=== PATIENT | female | born 1995 | race Caucasian/White ===

== ENCOUNTER → 2018-04-08 18:52 | Outpatient (CLI) | payer MEDICAID, SELFPAY ==
[2018-04-08 23:27] LABS: Chlamydia Trachomatis by PCR Negative (Negative); Neisserai gonorrhoeae by PCR Negative (Negative); Probe Check PASS; Sample Adequacy Control PASS; Specimen Processing Control PASS
== END ==
PROVIDERS: Visit Provider Obstetrics & Gynecology
DX: Z32.01 Encounter for pregnancy test, result positive (principal); Z11.3 Encounter for screening for infections with a predominantly sexual mode of transmission
CPT/HCPCS: 87491; 87591

== ENCOUNTER → 2018-04-22 14:58 | Outpatient (CLI) | payer MEDICAID, SELFPAY ==
[2018-04-22 15:46] LABS: Absolute Lymphocyte Count 1.86 X10^3/ul (0.83-4.51); Basophil# 0.01 X10^3/uL; Basophil% 0.1 % (0-1); Eosinophils% 1.1 % (0-5); Hematocrit 37.9 % (37-47); Hemoglobin 12.9 g/dl (12.0-15.0); Lymphocyte # 1.86 X10^3/ul (4.0); Lymphocyte % 19.7 % (19-41); Mean Corpuscular Hgb 30.2 pg (27.0-32.0); Mean Corpuscular Volume 88.8 fL (81-99); Mean Platelet Vol. 10.3 fl (6.2-12.0); Monocyte# 0.45 X10^3/uL; Monocyte% 4.8 % (0-10); Neutrophil # 7.03 X10^3/uL (2.7-7.7); Neutrophil % 74.2 % (47-70); Platelet Count 275 K/mm3 (150-450); RBC Distribution Width CV 12.8 % (11.6-14.6); RBC Distribution Width SD 40.9 fl (35.1-43.9); Red Blood Count 4.27 M/mm3 (4.2-5.4); White Blood Count 9.5 K/mm3 (4.4-11.0)
[2018-04-22 15:48] LABS: POSITIVE COUNT NO; POSITIVE DIFFERENTIAL NO; POSITIVE MORPHOLOGY NO
[2018-04-22 15:58] LABS: COTININE Drug Screen Positive (<200 ng/mL)
[2018-04-22 16:05] LABS: Amphetamine Urine VISTA NEGATIVE (<1000 ng/mL); Barbiturate Urine VISTA NEGATIVE (< 200 ng/mL); Benzodiazepine Urine VISTA NEGATIVE (< 200 ng/mL); Cocaine Urine VISTA NEGATIVE (< 300 ng/mL); Ecstacy Urine VISTA NEGATIVE (< 500 ng/mL); Methadone Urine VISTA NEGATIVE (< 300 ng/mL); PCP Urine VISTA NEGATIVE (< 25 ng/mL); THC Urine VISTA NEGATIVE (< 50 ng/mL); Vista UDS pH Range 6
[2018-04-22 16:07] LABS: Color, Urine Yellow (Yellow); Glucose, Dipstick Normal (Normal); Ketone-Dipstick 15 mg/dl (Negative); Leukocyte Esterase-Dipstick 25 /ul (Negative); Nitrite-Dipstick Negative (Negative); Occult Blood-Urine 10 /ul (Negative); Protein-Dipstick 30 mg/dl (Negative); Specific Gravity, Urine 1.015 (1.002-1.030); Urine Clarity Sl. Cloudy (Clear); Urine Urobilinogen 4 mg/dl (Normal); Urine pH 6.5 (5.0 - 8.0)
[2018-04-22 16:14] LABS: Urine Bilirubin Dipstick 1 mg/dL (Negative)
[2018-04-22 16:25] LABS: Thyroid Stim Hormone (TSH) 0.53 uIU/mL (0.358-3.74)
[2018-04-22 17:13] LABS: HIV - WCH Non-Reactive (Nonreactive); Rubella IgG 15.1 IU/mL; Vitamin D,25 Hydroxy 13.6 ng/mL (29.95-100.01)
[2018-04-24 09:01] LABS: HEPATITIS B SURFACE AG Negative (Negative); Hep C Antibodies <0.1 s/co ratio (0.0-0.9)
[2018-04-25 01:18] LABS: Prenatal RPR NONREACTIVE (NONREACTIVE)
== END ==
PROVIDERS: Visit Provider Obstetrics & Gynecology
DX: Z34.81 Encounter for supervision of other normal pregnancy, first trimester (principal)
CPT/HCPCS: 36415; 80307; 81002; 82306; 84443; 85025; 86703; 86762; 86803; 87340

== ENCOUNTER 2018-07-20 19:20 | Outpatient (CLI) | payer MEDICAID, SELFPAY ==
[2018-07-20 20:00] VITALS: BMI 33.6
[2018-07-20 21:13] LABS: Fetal Fibronectin POSITIVE
--- NOTE | 2018-07-21 00:11 | OB.TRI.NOTE ---
History of Present Illness Date of Service: 07/20/18 Was patient seen by the physician?: No Reason For Visit: R/O LABOR Date of Service: 07/20/18 Final ANAID: 10/29/18 Final ANAID Source: US <20 weeks Gestational age: 25 Weeks and 5 Days History of Present Illness: c/o losing mucous plug today denies contractions, leaking fluid or bleeding. Allergies hydroxyzine HCl [From Vistaril] Allergy (Verified 07/20/18 19:53) Rash hydroxyzine pamoate [From Vistaril] Allergy (Verified 07/20/18 19:53) Rash Laboratory Studies: Laboratory Tests 07/20/18 Range/Units 20:20 Fibronectin POSITIVE H Physical Exam General: Alert, Oriented x3, Cooperative, No apparent distress Cardiovascular: Regular rate, Regular Rhythm Lungs: Clear to auscultation, Normal air movement Abdomen: Soft, Non Tender, Non-Distended, Gravid, Appropriate for Gestational Age Neurological: Neuro grossly intact DISTRIBUTION DRIVER: Normal external genitalia NST - FHR Rate Baby A Baseline: 130s NST Reactive:: Appropriate for gestational age FHR Category:: Category I Uterine Activity:: none Impression/Plan No signs of PTL. NO signs of PPROM FFN positive. Appropriate heart beat. Will have followup in the office tomorrow for cervical length and betamethasone series.
--- NOTE | 2018-07-21 00:15 | OB.TRI.HP_ITS ---
History of Present Illness Date of Service: 07/20/18 Was patient seen by the physician?: No Reason For Visit: R/O LABOR Date of Service: 07/20/18 Final ANAID: 10/29/18 Final ANAID Source: US <20 weeks Gestational age: 25 Weeks and 5 Days History of Present Illness: c/o losing mucous plug today denies contractions, leaking fluid or bleeding. Allergies hydroxyzine HCl [From Vistaril] Allergy (Verified 07/20/18 19:53) Rash hydroxyzine pamoate [From Vistaril] Allergy (Verified 07/20/18 19:53) Rash Laboratory Studies: Laboratory Tests 07/20/18 Range/Units 20:20 Fibronectin POSITIVE H Physical Exam General: Alert, Oriented x3, Cooperative, No apparent distress Cardiovascular: Regular rate, Regular Rhythm Lungs: Clear to auscultation, Normal air movement Abdomen: Soft, Non Tender, Non-Distended, Gravid, Appropriate for Gestational Age Neurological: Neuro grossly intact CABIN OUTFITTER: Normal external genitalia NST - FHR Rate Baby A Baseline: 130s NST Reactive:: Appropriate for gestational age FHR Category:: Category I Uterine Activity:: none Impression/Plan No signs of PTL. NO signs of PPROM FFN positive. Appropriate heart beat. Will have followup in the office tomorrow for cervical length and betamethasone series.
--- OUTSIDE RECORDS SUMMARY | 2018-10-22 13:54 | XMS RPT_ITS ---
:1995 Author Organization OHIP Support Name Relationship Address Phone ALISA MATUTE Unavailable [address] + [place] [address] NORMA, NATE Unavailable [address] [place] [address] NOT GIVEN Unavailable SERVICES Unavailable JUJU, ALISA/MONIKA Unavailable [address] + [place] [address] JASBIR, NATE Unavailable [address] + [place] [address] [facility] Unavailable [address] + [place] [address] CHEW, ALISA/MONIKA Unavailable [address] + [place] [address] JASBIR, NATE Unavailable [address] + [place] [address] [facility] Unavailable [address] +. [place] [address] CHEW, JEWELS Unavailable [address] + [place] [address] JASBIR, NATE Unavailable [address] + [place] [address] CHEW, ALISA/MONIKA Unavailable [address] + [place] [address] JASBIR, NATE Unavailable [address] + [place] [address] [facility] Unavailable [address] +. [place] [address] CHEW, JEWELS Unavailable [address] + [place] [address] JASBIR, NATE Unavailable [address] + [place] [address] CHEW, ALISA/MONIKA Unavailable [address] + [place] [address] JASBIR, NATE Unavailable [address] + [place] [address] [facility] Unavailable [address] +. [place] [address] CHEW, ALISA Unavailable [address] + [place] [address] NORMA, NATE Unavailable [address] [place] [address] NOT GIVEN Unavailable SERVICES Unavailable CHEW, ALISA/MONIKA Unavailable [address] + [place] [address] JASBIR, NATE Unavailable [address] + [place] [address] [facility] Unavailable [address] +. [place] [address] CHEW, ALISA Unavailable [address] + [place] [address] NORMA, NATE Unavailable [address] [place] [address] NOT GIVEN Unavailable SERVICES Unavailable CHEW, ALISA Unavailable [address] + [place] [address] NOT GIVEN Unavailable SERVICES Unavailable CHEW, ALISA Unavailable [address] + [place] [address] NOT GIVEN Unavailable Unavailable Unavailable Care Team Providers Name Role Phone LORRAINE NIEVES CNP Admitting Unavailable LORRAINE NIEVES CNP Attending Unavailable LORRAINE NIEVES CNP Primary Care Unavailable KADE DASILVA Consulting Unavailable PROVIDER, UNKNOWN Consulting Unavailable LORRAINE NIEVES CNP Admitting Unavailable LORRAINE NIEVES CNP Attending Unavailable LORRAINE NIEVES CNP Primary Care Unavailable LORRAINE NIEVES CNP Consulting Unavailable PROVIDER, UNKNOWN Consulting Unavailable PROVIDER, UNKNOWN Consulting Unavailable LORRAINE NIEVES CNP Admitting Unavailable LORRAINE NIEVES CNP Attending Unavailable LORRAINE NIEVES CNP Primary Care Unavailable LORRAINE NIEVES CNP Consulting Unavailable PROVIDER, UNKNOWN Consulting Unavailable PROVIDER, UNKNOWN Consulting Unavailable SMITHA HAYS Admitting Unavailable SMITHA HAYS Attending Unavailable LORRAINE NIEVES CNP Referring Unavailable SMITHA HAYS Primary Care Unavailable LORRAINE NIEVES CNP Consulting Unavailable PROVIDER, UNKNOWN Consulting Unavailable PROVIDER, UNKNOWN Consulting Unavailable ML CONTRERAS DO Admitting Unavailable ML CONTRERAS DO Attending Unavailable LORRAINE NIEVES CNP Referring Unavailable ML CONTRERAS DO Primary Care Unavailable LORRAINE NIEVES CNP Consulting Unavailable PROVIDER, UNKNOWN Consulting Unavailable PROVIDER, UNKNOWN Consulting Unavailable ISAEL PICKETT Attending Unavailable KOROMA OJ, SUMMER T Referring Unavailable NO PRIMARY CARE, Primary Care Unavailable DARRIUS LESTER Attending Unavailable KOROMA OJ, SUMMER T Referring Unavailable NO PRIMARY CARE, Primary Care Unavailable Ml Howard Attending Unavailable Primay Care Physicia, No Primary Care Unavailable Koroma-Oj, Summer Attending Unavailable Primay Care Physicia, No Primary Care Unavailable Koroma-Oj, Summer Attending Unavailable Primay Care Physicia, No Primary Care Unavailable Koroma-Oj, Summer Attending Unavailable Primay Care Physicia, No Primary Care Unavailable Koroma-Oj, Summer Attending Unavailable Koroma-Oj, Summer Referring Unavailable Lorraine Nieves Primary Care Unavailable PROBLEMS PROBLEMS DATE TYPE CONDITION / CODE ATTENDING STATUS SOURCE 08/12/2018 Unknown Z34.83 - Encounter Vinod Active [place] for supervision of [facility] normal Hospital , third Repository trimester / Z34.83(ICD-10) 08/12/2018 Unknown E55.9 - Vitamin D Vinod Active [place] deficiency, [facility] unspecified / Hospital E55.9(ICD-10) Repository 04/22/2018 Unknown Z34.81 - Encounter Vinod Active [place] for supervision of [facility] other normal Hospital , first Repository trimester / Z34.81(ICD-10) 04/08/2018 Unknown Z11.3 - Encounter Vinod Active [place] for screening for [facility] infections with a Hospital predominantly Repository sexual mode of transmission / Z11.3(ICD-10) 04/08/2018 Unknown Z32.01 - Encounter Vinod Active [place] for test, [facility] result positive / Hospital Z32.01(ICD-10) Repository 03/04/2018 Principle Less than 8 weeks LORRAINE NIEVES Active [place] Patricia Diagnosis gestation of [facility] / Hospital Z3A01(ICD-10) Repository 01/16/2018 Admitting Irregular LORRAINE NIEVES Active [place] Diagnosis menstruation, [facility] unspecified / Hospital N926(ICD-10) Repository 01/16/2018 Principle Irregular LORRAINE NIEVES Active [place] Diagnosis menstruation, [facility] unspecified / Hospital N926(ICD-10) Repository 11/21/2017 Principle Unspecified mood LORRAINE NIEVES Active [place] Patricia Diagnosis [affective] [facility] disorder / Hospital F39(ICD-10) Repository PROCEDURES PROCEDURES No Procedure Records FoundRESULTS RESULTS CBC (NO DIFF) Collected: 08/22/2018 Status: F Source: [facility] 10:00 PM [facility] REPOSITORY TYPE CODE TESTS RESULT OUT OF RANGE REFERENCE UNITS LAB CBC (NO DIFF)(LOINC ) CBC (NO DIFF) Result Comment: CBC(WITHOUT DIFFERENTIAL) LAB WBC(LOINC) 4.5 - 10.8 x 10EE3/UL WBC 8.2 LAB RBC(LOINC) 4.10 - x 10EE6/UL 5.30 RBC Low 3.87 LAB HEMOGLOBIN(LOINC) 12.0 - g/dl 16.0 Low HEMOGLOBIN 11.9 LAB HEMATOCRIT(LOINC) 34.0 - % 46.0 HEMATOCRIT 34.5 LAB MCV(LOINC) 80 - 99 fl MCV 89 LAB MCH(LOINC) 27 - 33 pg MCH 31 LAB MCHC(LOINC) 32 - 36 X10 3 MCHC 35 LAB RDW/CV(LOINC) 12.0 - % 15.6 RDW/CV 13.4 LAB PLATELET(LOINC) 150 - 450 x10EE3/UL PLATELET 234 LAB MPV(LOINC) 6.6 - 10.5 fl MPV 8.7 Result Comment: {CB] Performed By: #### [id number] #### [facility],[address] [place] [address] CMP WITH EGFR Collected: 08/22/2018 Status: F Source: [facility] 10:00 PM [facility] REPOSITORY TYPE CODE TESTS RESULT OUT OF RANGE REFERENCE UNITS LAB CMP with eGFR(LOINC) CMP with eGFR Result Comment: COMPREHENSIVE METABOLIC PANEL LAB SODIUM(LOINC) 136 - 145 mmol/l SODIUM Low 134 LAB POTASSIUM(LOINC) 3.5 - 5.1 mmol/L POTASSIUM 3.6 LAB CHLORIDE(LOINC) 98 - 107 mmol/L CHLORIDE 102 LAB CO2(LOINC) 21.0 - mmol/L 31.0 CO2 21.7 LAB GLUCOSE(LOINC) 74 - 106 mg/dl GLUCOSE 93 LAB BUN(LOINC) 6 - 20 mg/dl BUN 12 LAB CREATININE(LOINC) 0.6 - 1.2 mg/dl CREATININE 0.6 LAB AST/SGOT(LOINC) 13 - 39 U/L AST/SGOT 22 LAB ALK PHOS(LOINC) 38 - 126 U/L ALK PHOS 98 LAB CALCIUM(LOINC) 8.6 - mg/dl 10.2 CALCIUM 9.1 LAB TOTAL 6.4 - 8.3 g/dl PROTEIN(LOINC) TOTAL PROTEIN 6.7 LAB ALBUMIN(LOINC) 3.4 - 4.8 g/dL ALBUMIN 3.6 LAB GLOBULIN(LOINC) 1.5 - 3.8 G/DL GLOBULIN 3.1 LAB A/G RATIO(LOINC) 0.9 - 1.6 A/G RATIO 1.2 LAB TOTAL BILI(LOINC) 0.0 - 1.5 mg/dl TOTAL BILI 0.5 LAB B/C RATIO(LOINC) 0 - 30 ratio B/C RATIO 20 LAB ALT/SGPT(LOINC) 8 - 35 U/L ALT/SGPT High 38 LAB ANION GAP(LOINC) 10 - 20 mmol/L ANION GAP 14 LAB AGE(LOINC) years AGE 23 LAB eGFR(LOINC) 60 - 999 ML/MINUTE eGFR >60 LAB eGFR(AA)(LOINC) 60 - 999 ML/MINUTE eGFR(AA) >60 Result Comment: ACCORDING TO THE NATIONAL KIDNEY DISEASE EDUCATION PROGRAM(NKDE), A NORMAL eGFR IS A VALUE GREATER THAN OR EQUAL TO 60 ML/MIN/1.73 SQ METERS. CHRONIC KIDNEY DISEASE: <60mL/MIN/1.73 SQ METERS KIDNEY FAILURE: <15mL/MIN/1.73 SQ METERS THIS TEST SHOULD ONLY BE USED FOR PATIENTS 18 YEARS OF AGE AND OLDER. Performed By: #### [id number] #### [place] [address] CHEST 2 VIEWS Observed: 08/22/2018 Status: F Source: [facility] 9:47 PM [place] [address] Patient: PEACE GREEN Phone#: : [phone] Age: 23 Gender: F Pt. Type: ER Account: [id number] Location: [id number] Ordering: ML CONTRERAS Exam Date: 08/22/2018/21:27 Family Phys: LORRAINE NIEVES Charge Code: [id number] Physician: [place] Order #: [id number] DLP Dose#: PROCEDURE: X-RAY CHEST 2 VIEWS COMPARISON: None. INDICATIONS: Cough. FINDINGS: LUNGS: Subtle right lung base density likely represents atelectasis. VASCULATURE: Normal. Unremarkable pulmonary vasculature. CARDIAC: Normal. No cardiac silhouette abnormality or cardiomegaly. MEDIASTINUM: Normal. No visible mass or adenopathy. PLEURA: Normal. No effusion or pleural thickening. BONES: Normal. No fracture or visible bony lesion. OTHER: Negative. CONCLUSION: 1. Probable atelectasis in the right lung base. Dictated by: Martha Huerta MD on 08/23/2018 at 9:27 Approved by: Martha Huerta MD on 08/23/2018 at 9:27 EMERGENCY REPORT Observed: 08/22/2018 Status: F Source: [facility] 8:56 PM [facility] EMERGENCY ROOM REPORT NAME ACCOUNT SEX AGE ADMIT DISCHARGE PT MED. RECORD# NUMBER DATE DATE TYPE NORMA [id number] F 23 08/22/18 3 PEACE Becerra [id number] ROOM: ER DATE OF : 1995 DICTATING PHYSICIAN: Ml Contreras TIME SEEN: 9 p.m. CHIEF COMPLAINT/HISTORY OF PRESENT ILLNESS: This is a 23-year-old white female 30 weeks complaining of a cough for the past 4 days. She does have a history of asthma and she has been wheezing. She did vomit 3 times today. She does have a history of vomiting while she is and her [employer]IST[employer] DISTRICT ATTORNEY doctor, Dr. Ga Christianson has given her some Zofran which is helping, but she still has been vomiting off and on throughout the day. Mom is concerned because she can get dehydrated easily from these episodes in the past. She has required IV fluids before. The patient has also had a history of pneumonia in the past. She does complain of some chest tightness which is consistent with her asthma. She could not find her inhaler initially, but she did eventually find it and has been using it which helps some but not a lot. PAST MEDICAL HISTORY: Patient has a past medical history of asthma, depression and anxiety. She is 30 weeks . She does have a history of pneumonia in the past. PAST SURGICAL HISTORY: Tonsillectomy and adenoidectomy. MEDICATIONS: Current medications include albuterol inhaler and Zofran. ALLERGIES: She is allergic to Vistaril. SOCIAL HISTORY: She is smoker, 1/2 pack per day. She denies any use of alcohol or illicit drugs. She lives at home with her family. REVIEW OF SYSTEMS: Denies any chest pain. Does admit to shortness of breath and cough. Denies any sputum. Does admit to wheezing and does complain of some chest tightness. Denies any abdominal pain. Does admit to nausea and vomiting. Denies any diarrhea, constipation, melena, hematochezia, headache, numbness, unsteady gait, weakness, neck or back pain, joint pain, skin rash or swelling, hives, hay fever or swollen glands. Further review of systems is negative. PHYSICAL EXAMINATION: Vital Signs: Blood pressure 102/93, pulse 129, respirations 20, temperature 97.7, pulse oximetry 96%, weight 204 pounds. Patient is alert and Page 1 of 2 [facility] GREEN Emergency Room Report oriented x 3. She presently appears in no acute distress. She is pleasant and cooperative. HEENT: Head appears atraumatic. Pupils are equal and reactive to light. Red reflex is intact bilaterally. Extraocular muscles are intact. No conjunctival injection. No scleral icterus or lid edema. Nose exhibits no rhinorrhea or epistaxis. Mouth: Mucous membranes are mildly dry. No pharyngeal erythema. Uvula is midline and elevates. Neck is supple with trachea midline. No JVD or lymphadenopathy. No posterior cervical tenderness. No nuchal rigidity. Lungs demonstrate bilateral expiratory wheezing in both the anterior and posterior lung gonzalez. No accessory muscle use. I do note crackles in the right posterior base as well. CVS: Heart rate and rhythm regular without murmur, mildly tachycardiac. Abdomen is soft, gravid, and nontender with normoactive bowel sounds x4 quadrants. No guarding or rigidity. No rebound. No palpable abdominal masses but, as noted, the abdomen is gravid. Back exhibits no midline or paraspinal region tenderness. No increased paraspinal muscle rigidity. Negative Aidan's sign. Extremities: No edema or cyanosis. Peripheral pulses are intact. No motor or sensory deficits noted. Hand certified health education specialist is strong and symmetric. Skin is warm and dry. No diaphoresis or rash. EMERGENCY DEPARTMENT COURSE AND TREATMENT: Presently, at this point, we will get a chest x-ray and we will give her an albuterol aerosol treatment. I am going to give her some IV fluids here from the vomiting and she does look a little bit dry, and we will get a CBC and a chemistry, and then reevaluate. DIAGNOSIS: Dictated By: Ml Contreras DO 08/22/18 21:41 JOB #: [id number] Transcribed By: maryjane 08/22/18 22:46 Electronically signed by: E-Sign: Dr. Ml Contreras D.O. 08/25/18 20:58 Page 2 of 2 [place] Emergency Room Report EMERGENCY REPORT Observed: 08/22/2018 Status: F Source: [facility] 8:56 PM [facility] EMERGENCY ROOM REPORT NAME ACCOUNT SEX AGE ADMIT DISCHARGE PT MED. RECORD# NUMBER DATE DATE TYPE NORMA [id number] F 23 08/22/18 08/23/18 3 PEACE Becerra [id number] ROOM: ER DATE OF : 1995 DICTATING PHYSICIAN: Ml Contreras ADDENDUM DIAGNOSTIC DATA: Chest x-ray showed a questionable mild right lower lobe infiltrate. Some of it may be breast shadow, but that is where I heard the crackles so clinically she presents as pneumonia. Her white count was 8.2, hemoglobin 11.9, hematocrit 34.5, and platelet count 234,000. Sodium was 134, potassium 3.6, chloride 102, and CO2 of 21.7. Her BUN was normal at 12, and creatinine was normal at 0.6. GFR was greater than 60. Glucose was 93. AST was 22, and ALT was mildly elevated at 38. Alkaline phosphatase was normal at 98. Total bilirubin was normal at 0.5. Anion gap was normal at 14. EMERGENCY DEPARTMENT COURSE AND TREATMENT: We did give her some IV fluids here for her vomiting, and she does feel better. The patient was placed on Zithromax 500 mg one p.o. daily, dispense #7 with no refill. She was given a dose here, and she has kept that down since we did give her some IV Zofran for the nausea. I gave her a prescription for an albuterol inhaler with AeroChamber 2 puffs every 6 hours as needed for shortness of breath/wheeze, dispense #1 with one refill. She is to rest, encourage fluids, take the Zofran for the nausea that her OB has prescribed, and make sure she does touch base with her ASSISTANT DISTRICT ATTORNEY on Saturday and update her on how she is feeling. If her symptoms become worse, return here to the Emergency Department. The patient was discharged in a clinically stable condition. Nurse's notes reviewed. Encourage fluids as tolerated. DIAGNOSES: 1. Acute exacerbation of asthma. 2. Mild right lower lobe pneumonia. 3. Vomiting with mild dehydration. 4. at 30 weeks. Dictated By: Ml Contreras DO 08/22/18 22:41 JOB #: [id number] Transcribed By: eran 08/23/18 06:36 Electronically signed by: E-Sign: Dr. Ml Contreras D.O. 08/25/18 20:58 Page 1 of 1 [facility] Emergency Room Report LIVER PROFILE Collected: 08/19/2018 Status: F Source: [place] 10:27 AM [facility] REPOSITORY Order Comment: Is Patient Fasting? Y TYPE CODE TESTS RESULT OUT OF RANGE REFERENCE UNITS LAB L501.1500 6.4-8.2 g/dL Normal T PROT 7.0 LAB L501.1800 3.2-5.0 g/dL Low ALB 2.7 LAB L501.1950 2.2-4.2 g/dL High GLOB 4.3 LAB L501.4100 15-37 U/L Normal AST 29 LAB L501.4305 45-117 U/L High ALK P 123 LAB L501.4405 13-56 U/L High ALT 60 LAB L501.4600 0.20-1.00 mg/dL Normal T BILI 0.40 LAB L501.4700 0.00-0.30 mg/dL Normal D BILI 0.13 Performed By: #### L500.3400, L500.4710 #### [facility] [address] [place], [address] GESTATIONAL GTT 3HR Collected: 08/19/2018 Status: F Source: [place] 100G 10:27 AM [facility] REPOSITORY Order Comment: Is Patient Fasting? Y TYPE CODE TESTS RESULT OUT OF RANGE REFERENCE UNITS LAB L501.0650 <105 mg/dL Normal GLU 99 GTT-FASTING Result Comment: GLUCOSE TOLERANCE TEST FOR Reference Interval GESTATIONAL DIABETES Fasting <105 mg/dL 1 hour <190 mg/dl 2 hour <165 mg/dl 3 hour <145 mg/dl LAB L501.0660 <190 mg/dL Normal GLU GTT- 1HR 177 LAB L501.0670 <165 mg/dL Normal GLU GTT- 2HR 102 LAB L501.0680 <145 L Normal GLU GTT- 3HR 111 Performed By: #### L500.3400, L500.4799 #### [facility] [address] [facility] [address] [place], [place], [address] CBC-COMPLETE BLOOD CNT Collected: 08/12/2018 Status: F Source: [place] NO DIFF 2:10 PM [facility] REPOSITORY TYPE CODE TESTS RESULT OUT OF RANGE REFERENCE UNITS LAB L100.1000 4.4-11.0 K/mm3 Normal WBC 10.0 LAB L100.1200 4.2-5.4 M/mm3 Low RBC 3.76 LAB L100.1300 12.0-15.0 g/dl Normal HGB 12.0 LAB L100.1400 37-47 % Low HCT 34.8 LAB L100.1500 81-99 fL Normal MCV 92.6 LAB L100.1600 27.0-32.0 pg Normal MCH 31.9 LAB L100.1700 32-36 g/gl Normal MCHC 34.5 LAB L100.1810 11.6-14.6 % Normal RDW CV 13.0 LAB L100.1820 35.1-43.9 fl Normal RDW SD 43.0 LAB L100.1900 150-450 K/mm3 Normal PLT 264 LAB L100.2000 6.2-12.0 fl Normal MPV 10.5 Performed By: #### L100.0500 #### [facility] [address] [facility] [address] [place], [place], [address] VITAMIN D,25 HYDROXY Collected: 08/12/2018 Status: F Source: [place] 2:10 PM [facility] REPOSITORY TYPE CODE TESTS RESULT OUT OF REFERENCE UNITS RANGE LAB L506.1000 29.95-100.01 ng/mL Low Vitamin D 12.5 25-OH Result Comment: Vitamin D 25(OH) Status Range Deficiency <20 ng/mL (50nmol/L) Insuffciency 20 - 30 ng/mL (50 - 75 nmol/L) Sufficiency 30 - 100 ng/mL (75 - 250 nmol/L) Toxicity >100 ng/mL (>250 nmol/L) Performed By: #### L506.1000 #### [facility] [address] [place], [address] COMPREHENSIVE METABOLIC Collected: 08/12/2018 Status: F Source: [place] [facility] 2:10 PM [facility] REPOSITORY TYPE CODE TESTS RESULT OUT OF RANGE REFERENCE UNITS LAB L501.0100 74-106 mg/dL High GLU 142 Result Comment: Fasting Glucose result greater than or equal to 126 mg/dL suggests DIABETES MELLITUS per A.D.A. criteria. Please note revised GLUCOSE reference range effective 2017. LAB L501.1000 7-18 mg/dL Normal BUN 9 LAB L501.1100 0.55-1.02 mg/dL Low CREAT,SERUM 0.52 Result Comment: The validity of the calculated GFR AND GFRAA in patients over 70 years has not been determined. Clinical correlation is essential. LAB L501.1110 >60 mL/min Normal EST GFR 153 Result Comment: Non- GFR Calc LAB L501.1115 >60 mL/min Normal EST GFR - AA 186 Result Comment: GFR Calc LAB L501.1300 10-20 RATIO Normal BUN/CRE 17.3 LAB L501.1500 6.4-8.2 g/dL T Normal PROT 6.4 LAB L501.1800 3.2-5.0 g/dL Low ALB 2.8 LAB L501.1950 2.2-4.2 g/dL Normal GLOB 3.6 LAB L501.2000 0.9-2.4 RATIO Low A/G 0.8 LAB L501.2200 8.5-10.1 mg/dL Low CA 8.4 LAB L501.4100 15-37 U/L Normal AST 30 LAB L501.4305 45-117 U/L Normal ALK P 112 LAB L501.4405 13-56 U/L High ALT 67 LAB L501.4600 0.20-1.00 mg/dL T Normal BILI 0.40 LAB L501.5300 136-145 mmol/L NA Normal 137 LAB L501.5600 3.5-5.1 mmol/L K Normal 3.7 LAB L501.5900 98-107 mmol/L CL Normal 107 LAB L501.6100 21.0-32.0 mmol/L Normal CO2 21.0 LAB L501.6200 5-15 Normal GAP 9 Performed By: #### L500.4050, L501.0250, L501.1400 #### [facility] [address] [place], [address] GLUCOSE CHALLENGE GEST Collected: 08/12/2018 Status: F Source: [place] 1H 50G 2:10 PM [facility] REPOSITORY TYPE CODE TESTS RESULT OUT OF RANGE REFERENCE UNITS LAB L501.0250 70-140 mg/dL High GLU GEST 142 50g 1H Performed By: #### L500.4050, L501.0250, L501.1400 #### [facility] [address] [place], [address] URIC ACID Collected: 08/12/2018 Status: F Source: [place] 2:10 PM [facility] REPOSITORY TYPE CODE TESTS RESULT OUT OF RANGE REFERENCE UNITS LAB L501.1400 2.6-6.0 mg/dL Normal URIC 4.6 Result Comment: The drugs N-Acetylcysteine and Metamizole may falsely depress this assay. Performed By: #### L500.4050, L501.0250, L501.1400 #### [facility] [address] [place], [place], [address] FIBRONECTIN Collected: 07/20/2018 Status: F Source: [place] 8:20 PM [facility] REPOSITORY TYPE CODE TESTS RESULT OUT OF REFERENCE UNITS RANGE LAB L205.0100 High fFN POSITIVE Result Comment: CALLED TO Magnus GILBERT 07/20/182110 BY BETTY Performed By: #### L205.0000 #### [facility] [address] [place], [address] PROGRESS NOTE Observed: 07/02/2018 Status: COMPLETED Source: [place] 12:45 PM [facility] REPOSITORY The total patient time of the visit was 15 minutes, of which greater than 50% of the time was spent counseling and coordinating care. URINE DRUG SCREEN Collected: 04/22/2018 Status: F Source: [place] ([place]IST[place]) 3:00 PM [facility] REPOSITORY Order Comment: List of Drugs Taken or Suspected? UNK TYPE CODE TESTS RESULT OUT OF RANGE REFERENCE UNITS LAB L505.0075 TO BE Normal CONFIRMED Result Comment: CONFIRMATORY TESTING FOR ALL POSITIVE URINE DRUG SCREEN RESULTS WILL ONLY BE SENT OUT UPON PHYSICIAN ORDER. VISTA Urine Drug Screen methods provide only preliminary analytical test results. A more specific alternate chemical method must be used in order to obtain a confirmed analytical result. Gas chromatography/mass spectrometery (GC/MS) is the preferred confirmatory method. Clinical consideration and professional judgement should be applied to any drug of abuse test result, particularly when preliminary positive results are used. URINE TCA TESTING MUST BE ORDERED SEPARATELY. USE TEST MNEMONIC: [facility] LAB L505.5005 VISTA UDS PH 6 Normal LAB L505.5015 <1000 ng/mL AMPHETAMINES Normal NEGATIVE LAB L505.5025 < 200 ng/mL BARBITIURATES Normal NEGATIVE LAB L505.5035 < 200 ng/mL BENZODIAZIPINE Normal NEGATIVE LAB L505.5045 < 300 ng/mL COCAINE Normal NEGATIVE LAB L505.5055 < 500 ng/mL ECSTACY Normal NEGATIVE LAB L505.5065 < 300 ng/mL METHADONE Normal NEGATIVE LAB L505.5075 < 300 ng/mL OPIATES Normal NEGATIVE LAB L505.5085 < 25 ng/mL PCP Normal NEGATIVE LAB L505.5095 < 50 ng/mL THC Normal NEGATIVE Performed By: #### L505.5000, L505.6240 #### [facility] [address] [place], [address] NICOTINE URINE DRUG Collected: 04/22/2018 Status: F Source: [place] SCREEN 3:00 PM [facility] REPOSITORY Order Comment: List of Drugs Taken or Suspected? UNK TYPE CODE TESTS RESULT OUT OF RANGE REFERENCE UNITS LAB L505.6250 TO BE Normal CONFIRMED Result Comment: CONFIRMATORY TESTING FOR ALL POSITIVE URINE DRUG SCREEN RESULTS WILL ONLY BE SENT OUT UPON PHYSICIAN ORDER. The results of Urine Drug Screen methods provide only preliminary analytical test results. A more specific alternate chemical method must be used in order to obtain a confirmed analytical result. Gas chromatography/mass spectrometery (GC/MS) is the preferred confirmatory method. Clinical consideration and professional judgement should be applied to any drug of abuse test result, particularly when preliminary positive results are used. LAB L505.6270 <200 ng/mL High COT DRG Positive SCREEN Result Comment: Cotinine is the first-stage metabolite of Nicotine. Performed By: #### L505.5000, L505.6240 #### [facility] [address] [place], [place], [address] CBC W/DIFF, AUTOMATED Collected: 04/22/2018 Status: F Source: [place] 3:00 PM [facility] REPOSITORY TYPE CODE TESTS RESULT OUT OF RANGE REFERENCE UNITS LAB L100.1000 4.4-11.0 K/mm3 Normal WBC 9.5 LAB L100.1200 4.2-5.4 M/mm3 Normal RBC 4.27 LAB L100.1300 12.0-15.0 g/dl Normal HGB 12.9 LAB L100.1400 37-47 % Normal HCT 37.9 LAB L100.1500 81-99 fL Normal MCV 88.8 LAB L100.1600 27.0-32.0 pg Normal MCH 30.2 LAB L100.1700 32-36 g/gl Normal MCHC 34.0 LAB L100.1810 11.6-14.6 % Normal RDW CV 12.8 LAB L100.1820 35.1-43.9 fl Normal RDW SD 40.9 LAB L100.1900 150-450 K/mm3 Normal PLT 275 LAB L100.2000 6.2-12.0 fl Normal MPV 10.3 LAB L100.2100 47-70 % High NEUT% 74.2 LAB L100.2200 19-41 % Normal LY% 19.7 LAB L100.2300 0-10 % Normal MONO% 4.8 LAB L100.2400 0-5 % Normal EO% 1.1 LAB L100.2500 0-1 % Normal BASO% 0.1 LAB L100.2550 0.0-0.9 % Normal IM GRAN % 0.100 Result Comment: IG% - Immature Granulocytes (promyelocytes, myelocytes and metamyelocytes) > 1% indicates that a LEFT SHIFT is Present. LAB L100.2620 2.0-7.7 X10 3/uL Normal Absolute Neut 7.0 LAB L100.2720 0.83-4.51 X10 3/ul Normal Absolute Lymph 1.86 Performed By: #### L100.0100 #### [facility] [address] [facility] [place], [place], [id number] URINALYSIS, ROUTINE Collected: 04/22/2018 Status: F Source: [place] (DIPSTICK) 3:00 PM [facility] REPOSITORY Order Comment: How was Urine Obtained? Urine, Random TYPE CODE TESTS RESULT OUT OF RANGE REFERENCE UNITS LAB L400.3000 Yellow COLOR Normal Yellow LAB L400.3050 Clear Normal CLARITY Sl. Cloudy LAB L400.3200 Normal mg/dl Normal GLUCOSE, UR Normal LAB L400.3300 Negative mg/dL High BILIRUBIN URINE 1 Result Comment: COLOR OF URINE MAY AFFECT DIPSTICK RESULTS. LAB L400.3400 Negative mg/dl High KETONE UR 15 LAB L400.3465 1.002-1.030 Normal SP.GR. DIPSTX 1.015 LAB L400.3550 5.0 - 8.0 pH Normal UR 6.5 LAB L400.3600 Negative mg/dl High PROT DIPSTX 30 LAB L400.3700 Normal mg/dl High UROBILI 4 LAB L400.3750 Negative Normal NITRITE UR Negative LAB L400.3780 Negative /ul High OCCULT 10 BLOOD-UR LAB L400.3800 Negative /ul High LEUK ESTERASE 25 Performed By: #### L400.2010 #### [facility] [address] [facility] [address] [place], [place], [id number] THYROID STIM HORMONE Collected: 04/22/2018 Status: F Source: [place] (TSH) 3:00 PM [facility] REPOSITORY TYPE CODE TESTS RESULT OUT OF RANGE REFERENCE UNITS LAB L501.9520 0.358-3.74 uIU/mL Normal TSH 0.53 Performed By: #### L501.9520 #### [facility] [address] [facility], [address] VITAMIN D,25 HYDROXY Collected: 04/22/2018 Status: F Source: [place] 3:00 PM [facility] REPOSITORY TYPE CODE TESTS RESULT OUT OF REFERENCE UNITS RANGE LAB L506.1000 29.95-100.01 ng/mL Low Vitamin D 13.6 25-OH Result Comment: Vitamin D 25(OH) Status Range Deficiency <20 ng/mL (50nmol/L) Insuffciency 20 - 30 ng/mL (50 - 75 nmol/L) Sufficiency 30 - 100 ng/mL (75 - 250 nmol/L) Toxicity >100 ng/mL (>250 nmol/L) Performed By: #### L506.1000, L509.4000, L3890.6005 #### [facility] [address] [place], [address] RUBELLA IGG Collected: 04/22/2018 Status: F Source: [place] 3:00 PM [facility] REPOSITORY TYPE CODE TESTS RESULT OUT OF RANGE REFERENCE UNITS LAB L509.4000 IU/mL Normal Rubella IgG 15.1 Result Comment: Antibody results Interpretation of Immune Status < 5 IU/ml Presumed Non-immune 5 - < 10 IU/ml Equivocal > or = 10 IU/ml Presumed Immune Performed By: #### L506.1000, L509.4000, L3890.6005 #### [facility] [address] [place], [address] HIV - [facility] Collected: 04/22/2018 Status: F Source: [place] 3:00 PM [facility] REPOSITORY TYPE CODE TESTS RESULT OUT OF RANGE REFERENCE UNITS LAB L3890.6005 Nonreactive Normal HIV - [facility] Non-Reactive Performed By: #### L506.1000, L509.4000, L3890.6005 #### [facility] [address] [place], [address] T AND S-NO Collected: 04/22/2018 Status: F Source: [place] CHARGE W/PNP 3:00 PM [facility] REPOSITORY Order Comment: Reason for Type AND Screen/Red Cells: Surgery? N TYPE CODE TESTS RESULT OUT OF RANGE REFERENCE UNITS LAB B10.0800 A Normal BLOOD POSITIVE TYPE GEL LAB B100.4050 Normal Ab SCREEN NEGATIVE GEL Performed By: #### B100.7550 #### [facility] [address] [facility] [address] [place], [place], [id number] HEPATITIS B SURFACE Collected: 04/22/2018 Status: F Source: [place] AG 3:00 PM [facility] REPOSITORY TYPE CODE TESTS RESULT OUT OF RANGE REFERENCE UNITS LAB L3100.0400 Negative Normal HB Negative SURF AG Result Comment: Performed at: [facility] [id number] Production Assistant: Miguel Gray PhD, Phone: [phone] Performed By: #### L3100.0390, L3100.0625 #### [facility] (refer to report for specific site) refer to report for address and phone number HEPATITIS C ANTIBODIES Collected: 04/22/2018 Status: F Source: [place] 3:00 PM [facility] REPOSITORY TYPE CODE TESTS RESULT OUT OF RANGE REFERENCE UNITS LAB L3100.0650 0.0-0.9 s/co ratio Normal HEP C AB <0.1 Result Comment: Negative: < 0.8 Indeterminate: 0.8 - 0.9 Positive: > 0.9 The CDC recommends that a positive HCV antibody result be followed up with a HCV Nucleic Acid Amplification test (540394). Performed By: #### L3100.0390, L3100.0625 #### [facility] (refer to report for specific site) refer to report for address and phone number RPR Collected: 04/22/2018 Status: F Source: [place] 3:00 PM [facility] REPOSITORY TYPE CODE TESTS RESULT OUT OF REFERENCE UNITS RANGE LAB L700.5100 NONREACTIVE Normal RPR NONREACTIVE Performed By: #### L700.5100 #### [facility] [address] [place], [place], [address] US OB INITIAL< 14 Observed: 04/18/2018 Status: F Source: DARIEN LEE; 1ST GESTATION 1:18 PM [facility] [address] [place], [place] [address] Patient: PEACE GREEN Phone#: : [phone] Age: 22 Gender: F Pt. Type: ER Account: [id number] Location: 052 Ordering: SMITHA HAYS Exam Date: 04/18/2018/12:45 Family Phys: LORRAINE NIEVES Charge Code: 380863 Physician: [place] Order #: [id number] DLP Dose#: PROCEDURE: OB INITIAL <14 WEEKS ULTRASOUND, TRANSABDOMINAL COMPARISON: [facility], , OB INITIAL <14 WEEKS, 06/22/2015, 16:58. INDICATIONS: Pelvic Pain in First Trimester TECHNIQUE: Transabdominal pelvic ultrasound examinations were performed. FINDINGS: GESTATIONAL SAC: Present and normal appearing. POLE: Present and normal appearing. 12 weeks one day YOLK SAC: Not visualized. CARDIAC ACTIVITY: Present. Measures 159 beats per minute. UTERUS: Normal. The uterus measures 12.3 x 7.7 x 9.4 cm. ADNEXAE/OVARIES: Normal. The right ovary measures 2.7 x 2.7 x 1.8 cm the volume of 6.6 mL. The left ovary measures 2.9 x 1.6 x 2.5 cm with limited 6.0 mL. CUL-DE-SAC: Normal. CLINICAL AGE: Unknown. SONOGRAPHIC AGE: 12 weeks one day with estimated date of delivery of October 30, 2018. PLACENTA: Posterior and low-lying covering the cervical os. AMNIOTIC FLUID VOLUME: Normal for age. OTHER: Negative. CONCLUSION: 1. Single live intrauterine gestation measuring 12 weeks one day with estimated date of delivery of October 30, 2018. 2. Posterior and low lying placenta covering the cervical os. Recommend attention to this area on anatomy scan to evaluate for placental location. Dictated by: Martha Huerta MD on 04/18/2018 at 13:31 Approved by: Martha Huerta MD on 04/18/2018 at 13:34 CBC Collected: 04/18/2018 Status: F Source: [facility] 12:15 PM [facility] REPOSITORY TYPE CODE TESTS RESULT OUT OF RANGE REFERENCE UNITS LAB CBC(LOINC) CBC Result Comment: CBC-COMPLETE BLOOD COUNT LAB WBC(LOINC) 4.5 - 10.8 x 10EE3/UL WBC High 16.8 LAB RBC(LOINC) 4.10 - x 10EE6/UL 5.30 RBC 4.39 LAB HEMOGLOBIN(LOINC 12.0 - g/dl ) 16.0 HEMOGLOBIN 13.6 LAB HEMATOCRIT(LOINC 34.0 - % ) 46.0 HEMATOCRIT 38.7 LAB MCV(LOINC) 80 - 99 fl MCV 88 LAB MCH(LOINC) 27 - 33 pg MCH 31 LAB MCHC(LOINC) 32 - 36 X10 3 MCHC 35 LAB RDW/CV(LOINC) 12.0 - % 15.6 RDW/CV 13.1 LAB PLATELET(LOINC) 150 - 450 x10EE3/UL PLATELET 276 LAB MPV(LOINC) 6.6 - 10.5 fl MPV 8.8 Result Comment: AUTOMATED DIFFERENTIAL LAB NEUT %(LOINC) 46.0 - 76.0 % NEUT % High 85.3 LAB LYMPH %(LOINC) 20.0 - 45.0 % Low LYMPH % 9.9 LAB MONOS %(LOINC) 0.0 - 10.0 % MONOS % 3.6 LAB EO %(LOINC) 0.0 - 7.0 % EO % 1.1 LAB BASO %(LOINC) 0.0 - 2.0 % BASO % 0.1 LAB Lymph #(LOINC) 0.80 - 2.80 x10EE3/U L Lymph # 1.70 LAB Neut #(LOINC) 1.50 - 7.10 x10EE3/U L Neut # High 14.30 LAB [place] #(LOINC) 0.20 - 1.00 x10EE3/U L [place] # 0.60 LAB EO #(LOINC) 0.00 - 0.50 x10EE3/U L EO # 0.20 LAB Baso #(LOINC) 0.00 - 0.10 x10EE3/U L Baso # 0.00 LAB MANUAL DIFF(LOINC) MANUAL DIFF N/A LAB MORPHOLOGY(LOINC ) MORPHOLOGY N/A Result Comment: {CD] Performed By: #### [id number] #### [facility],[address] [place], [place] [id number] URINALYSIS Collected: 04/18/2018 Status: F Source: [facility] 12:15 PM [facility] REPOSITORY TYPE CODE TESTS RESULT OUT OF REFERENCE UNITS RANGE LAB URINALYSIS (LOINC) URINALYSIS Result Comment: URINALYSIS LAB Specimen Type(LOINC) Specimen Type UNSPECIFIED LAB Color(LOINC) NORMAL: YELLOW Color valentino LAB Clarity(LOINC) NORMAL: CLEAR Clarity sl.cloudy LAB ph(LOINC) NORMAL: 5.0-8.0 ph 5 LAB Protein(LOINC) NORMAL: NEGATIVE Protein 15 Abnormal LAB Glucose(LOINC) NORMAL: NORMAL Glucose NORM LAB Ketone(LOINC) NORMAL: NEGATIVE Ketone 5 Abnormal LAB Bilirubin(LOINC) NORMAL: NEGATIVE NEG Bilirubin LAB Blood(LOINC) NORMAL: NEGATIVE Blood NEG LAB Urobilinog(LOINC NORMAL: ) NORMAL 1 Abnormal Urobilinog LAB Sp NORMAL: [place](LOINC) 1.010-1.030 Sp 1.020 [place] LAB Nitrite(LOINC) NORMAL: NEGATIVE Nitrite NEG LAB Leukocytes(LOINC NORMAL: ) NEGATIVE 500 Abnormal Leukocytes LAB Microscopic(LOIN C) SEE Microscopic BELOW Result Comment: MICROSCOPIC LAB Wbc(LOINC) 0-5/hpf Wbc 6-10 LAB Rbc(LOINC) 0-3/hpf Rbc NONE LAB Casts(LOINC) Casts NONE LAB Crystals(LOINC) Crystals NONE LAB Amorphous(LOINC) Amorphous NONE LAB Bacteria(LOINC) Bacteria TRACE LAB Epi Cells(LOINC) Epi Cells MANY LAB Mucous(LOINC) Mucous NONE LAB Yeast(LOINC) Yeast NONE Performed By: #### [id number] #### [place] [address] BB TYPE & SCREEN Collected: 04/18/2018 Status: F Source: [facility] 12:15 PM [facility] REPOSITORY TYPE CODE TESTS RESULT OUT OF REFERENCE UNITS RANGE LAB BB TYPE & SCREEN(LOIN C) BB TYPE & SCREEN Result Comment: TYPE, Rh, AND SCREEN LAB ABO(LOINC) ABO A LAB Rh(LOINC) Rh POS LAB ANTIBODY SCR(LOINC) ANTIBODY negative SCR Performed By: #### [id number] #### [place] [address] PREG SERUM QUANT Collected: 04/18/2018 Status: F Source: [facility] 12:15 PM [facility] REPOSITORY TYPE CODE TESTS RESULT OUT OF REFERENCE UNITS RANGE LAB HCG mIU/mL QUANTITATI VE(LOINC) HCG QUANTITATIVE [id number] Result Comment: Reference Range: Male: <5 Female: Non: <5 1 - 7 days : 5 - 50 1 - 2 weeks: 50 - 500 2 - 3 weeks: 100 - 5000 3 - 4 weeks: 500 - 10,000 4 - 5 weeks: 1000 - 50,000 5 - 6 weeks: 10,000 - 100,000 6 - 8 weeks: 15,000 - 200,000 2 - 3 months: 10,000 - 100,000 2ND TRIMESTER 3000-50,000 3RD TRIMESTER 1000-50,000 Performed By: #### [id number] #### [facility],[address] [place] [address] Observed: 04/18/2018 Status: F Source: [facility] CULTURE URINE 12:15 PM [facility] REPOSITORY CULTURE URINE _URINE CULTURE_ M I C R O B I O L O G Y R E P O R T FINAL Antimicrobial Susceptibility and Organism Identification Report Specimen Number : [id number] Requested : 04/18/18 Specimen Source : URINE Collected : 04/18/18 12:15 Ha of Isolation : Emergency Room Received : 04/18/18 12:15 Requesting Physician : ALLYSON Patient/Specimen Tests and Comments Specimen Comments FINAL REPORT: NO GROWTH AT 18 - 24 HOURS NO GROWTH AT 48 HOURS Tech : Source : URINE ID # : [id number] FINAL Report Date : / / : Collected : 04/18/18 12:15 04/20/18.1444.JLN. 04/19/18.0724.JLN. 04/20/18.1444.JLN.COMPLETE Performed By: #### [id number] #### [facility],[address] [place] [address] EMERGENCY REPORT Observed: 04/18/2018 Status: F Source: [facility] 11:17 AM [facility] EMERGENCY ROOM REPORT NAME ACCOUNT SEX AGE ADMIT DISCHARGE PT MED. RECORD# NUMBER DATE DATE KIANNA GREEN [id number] Patti 04/18/18 04/18/[address] [place] [address] ROOM: ER DATE OF : 1995 DICTATING PHYSICIAN: Smitha Valadez CHIEF COMPLAINT: Right-sided abdominal pain and right lower back pain. HISTORY OF PRESENT ILLNESS: This is a 22-year-old female who believes she is about 6 to 8 weeks' . She saw OB last week and has an ultrasound planned for next week. They did a pelvic examination with cultures that was all negative. 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 She denies any burning with urination. She has had a normal appetite other than the regular nausea that she gets with her . No vomiting. No fevers, chills, cough, chest pain, shortness of breath or history of problems with her back or stomach. PAST MEDICAL HISTORY: Depression, anxiety, and asthma. PAST SURGICAL HISTORY: Tonsils and adenoids. MEDICATIONS: See nurse's note. ALLERGIES: Vistaril. FAMILY HISTORY: Noncontributory. SOCIAL HISTORY: She denies alcohol, tobacco or illicit drug abuse. REVIEW OF SYSTEMS: Ten systems were reviewed and pertinent positives as above in HPI. PHYSICAL EXAMINATION: Blood pressure is 122/60, pulse 88, respiratory rate 20, temperature 97.9, and oxygen saturation 96% on room air. General: Well-developed, well-nourished, well-hydrated, alert and oriented x3, in no acute distress. Head is normocephalic, atraumatic. Pupils are equal, round, and reactive to light bilaterally. Mucous membranes are moist. Full range of motion of the neck without any difficulty. Heart rate and rhythm are regular without murmur, gallop or rub. Lungs are clear to auscultation bilaterally without wheezes, rales or rhonchi. Abdomen is soft. Slight tenderness in the right mid-quadrant posteriorly in the right flank area. No cervical or thoracic tenderness in the midline. No reproducible flank tenderness, swelling or contusion. No guarding, rebound, rigidity or peritoneal signs. Good bowel sounds. Equal bilateral femoral, dorsalis pedis and posterior tibial pulses. No lower extremity edema, Page 1 of 2 [facility]ACE GREEN Emergency Room Report calf tenderness or swelling. Serial abdominal examinations show minimal tenderness with no acute guarding, rebound, or rigidity. DIAGNOSTIC DATA: White blood cell count came back at about 16,000. H&H are stable. Neutrophils are 85. Ultrasound shows an intrauterine at 12 weeks and 1 day. Patient with a urinary tract infection with 500 leukocytes and 6-10 white cells. Urine culture is obtained. EMERGENCY DEPARTMENT COURSE AND TREATMENT: The patient was started on Macrobid. She was also given Zofran for nausea, which resolved. As a differential diagnosis, the white count could be elevated due to a urinary tract infection. It was not a catheterized specimen. We are going to do a urine culture on that. She does not have any signs and symptoms consistent with pyelonephritis. Appendicitis was included in the differential diagnosis. Clinically, I do not appreciate guarding, rebound, rigidity or classic appendicitis-type symptoms. However, we discussed that this could evolve into an appendicitis even though the urine is slightly infected and there is a white count elevation and it is not a clean-catch specimen. For that reason, I want her to recheck in 12-24 hours in the Emergency Department if necessary, as it is the weekend. She has a follow-up appointment with her ASSISTANT DISTRICT ATTORNEY on Saturday and discussed reasons for ED return sooner. DIAGNOSES: 1. Intrauterine . 2. Urinary tract infection. Dictated By: Smitha Valadez DO 04/18/18 13:55 JOB #: [id number] Transcribed By: eran 04/19/18 15:39 Electronically signed by: E-Sign: SMITHA VALADEZ MD 06/24/18 12:00 Page 2 of 2 [facility] Emergency Room Report CT/NG [facility] BY PCR Collected: 04/08/2018 Status: F Source: [place] 2:55 PM [facility] REPOSITORY TYPE CODE TESTS RESULT OUT OF RANGE REFERENCE UNITS LAB L8200.2100 Negative Normal Chlam Negative Trac PCR LAB L8200.2200 Negative Normal NG by Negative PCR Performed By: #### L8200.1999 #### [facility] [address] [place] [address], [address] SERUM QUAL Collected: 03/04/2018 Status: F Source: [place]AR[place] PATRICIA 1:37 PM [facility] REPOSITORY TYPE CODE TESTS RESULT OUT OF REFERENCE UNITS RANGE LAB NEGATIVE SER(LOINC) SER POSITIVE LAB INTERNAL QC(LOINC) INTERNAL QC PASS LAB EXTERNAL QC DONE?(LOINC) EXTERNAL QC YES DONE? Performed By: #### [id number] #### [facility],[address] [place] [address] PREG SERUM QUANT Collected: 01/16/2018 Status: F Source: DARIEN PATRICIA 11:27 AM [facility] REPOSITORY TYPE CODE TESTS RESULT OUT OF REFERENCE UNITS RANGE LAB HCG mIU/mL QUANTITATI VE(LOINC) HCG QUANTITATIVE <0.5 Result Comment: Reference Range: Male: <5 Female: Non: <5 1 - 7 days : 5 - 50 1 - 2 weeks: 50 - 500 2 - 3 weeks: 100 - 5000 3 - 4 weeks: 500 - 10,000 4 - 5 weeks: 1000 - 50,000 5 - 6 weeks: 10,000 - 100,000 6 - 8 weeks: 15,000 - 200,000 2 - 3 months: 10,000 - 100,000 2ND TRIMESTER 3000-50,000 3RD TRIMESTER 1000-50,000 Performed By: #### [id number] #### [facility],[address] [place] [address] CBC Collected: 11/21/2017 Status: F Source: [facility] 9:31 AM [facility] REPOSITORY TYPE CODE TESTS RESULT OUT OF RANGE REFERENCE UNITS LAB CBC(LOINC) CBC Result Comment: CBC-COMPLETE BLOOD COUNT LAB WBC(LOINC) 4.5 - 10.8 x 10EE3/UL WBC 9.9 LAB RBC(LOINC) 4.10 - x 10EE6/UL 5.30 RBC 4.72 LAB HEMOGLOBIN(LOINC) 12.0 - g/dl 16.0 HEMOGLOBIN 14.1 LAB HEMATOCRIT(LOINC) 34.0 - % 46.0 HEMATOCRIT 41.8 LAB MCV(LOINC) 80 - 99 fl MCV 89 LAB MCH(LOINC) 27 - 33 pg MCH 30 LAB MCHC(LOINC) 32 - 36 X10 3 MCHC 34 LAB RDW/CV(LOINC) 12.0 - % 15.6 RDW/CV 13.0 LAB PLATELET(LOINC) 150 - 450 x10EE3/UL PLATELET 317 LAB MPV(LOINC) 6.6 - 10.5 fl MPV 9.3 Result Comment: AUTOMATED DIFFERENTIAL LAB NEUT %(LOINC) 46.0 - 76.0 % NEUT % 64.5 LAB LYMPH %(LOINC) 20.0 - 45.0 % LYMPH % 27.2 LAB MONOS %(LOINC) 0.0 - 10.0 % MONOS % 4.1 LAB EO %(LOINC) 0.0 - 7.0 % EO % 3.7 LAB BASO %(LOINC) 0.0 - 2.0 % BASO % 0.5 LAB Lymph #(LOINC) 0.80 - 2.80 x10EE3/U L Lymph # 2.70 LAB Neut #(LOINC) 1.50 - 7.10 x10EE3/U L Neut # 6.40 LAB [place] #(LOINC) 0.20 - 1.00 x10EE3/U L [place] # 0.40 LAB EO #(LOINC) 0.00 - 0.50 x10EE3/U L EO # 0.40 LAB Baso #(LOINC) 0.00 - 0.10 x10EE3/U L Baso # 0.00 LAB MANUAL DIFF(LOINC) MANUAL DIFF N/A LAB MORPHOLOGY(LOINC ) MORPHOLOGY N/A Result Comment: {CD] Performed By: #### [id number] #### [address] [address] VITAMIN D, 25 Collected: 11/21/2017 Status: F Source: [facility] 9:31 [facility] REPOSITORY TYPE CODE TESTS RESULT OUT OF RANGE REFERENCE UNITS LAB VitD(INC) 30.00 - 100 ng/mL Low VitD 17.40 Result Comment: 25-OHD3 indicates both endogenous production and supplementation. 25-OHD2 is an indicator of exogenous sources, such as diet or supplementation. Therapy is based on measurement of Total 25-OHD, with levels <20 ng/mL indicative of Vitamin D deficiency, while levels between 20 ng/mL and 30 ng/mL suggest insufficiency. Optimal levels are >=30ng/mL. Vitamin D, 25-OH D3 Not Established Vitamin D, 25-OH D2 Not Established Performed By: #### [id number] #### [address] [address] CMP WITH EGFR Collected: 11/21/2017 Status: F Source: [facility] 9:31 [facility] REPOSITORY TYPE CODE TESTS RESULT OUT OF RANGE REFERENCE UNITS LAB CMP with eGFR(LOINC) CMP with eGFR Result Comment: COMPREHENSIVE METABOLIC PANEL LAB SODIUM(LOINC) 136 - 145 mmol/l SODIUM 137 LAB POTASSIUM(LOINC) 3.5 - 5.1 mmol/L POTASSIUM 3.9 LAB CHLORIDE(LOINC) 98 - 107 mmol/L CHLORIDE 105 LAB CO2(LOINC) 21.0 - mmol/L 31.0 CO2 24.8 LAB GLUCOSE(LOINC) 74 - 106 mg/dl GLUCOSE 103 LAB BUN(LOINC) 6 - 20 mg/dl BUN 14 LAB CREATININE(LOINC) 0.6 - 1.2 mg/dl CREATININE 0.7 LAB AST/SGOT(LOINC) 13 - 39 U/L AST/SGOT Low 11 LAB ALK PHOS(LOINC) 38 - 126 U/L ALK PHOS 62 LAB CALCIUM(LOINC) 8.6 - mg/dl 10.2 CALCIUM 9.2 LAB TOTAL PROTEIN(LOINC) 6.4 - 8.3 g/dl TOTAL PROTEIN 7.2 LAB ALBUMIN(LOINC) 3.4 - 4.8 g/dL ALBUMIN 4.1 LAB GLOBULIN(LOINC) 1.5 - 3.8 G/DL GLOBULIN 3.1 LAB A/G RATIO(LOINC) 0.9 - 1.6 A/G RATIO 1.3 LAB TOTAL BILI(LOINC) 0.0 - 1.5 mg/dl TOTAL BILI 0.4 LAB B/C RATIO(LOINC) 0 - 30 ratio B/C RATIO 20 LAB ALT/SGPT(LOINC) 8 - 35 U/L ALT/SGPT 18 LAB ANION GAP(LOINC) 10 - 20 mmol/L ANION GAP 11 LAB AGE(LOINC) years AGE 22 LAB eGFR(LOINC) 60 - 999 ML/MINUTE eGFR >60 LAB eGFR(AA)(LOINC) 60 - 999 ML/MINUTE eGFR(AA) >60 Result Comment: ACCORDING TO THE NATIONAL KIDNEY DISEASE EDUCATION PROGRAM(NKDE), A NORMAL eGFR IS A VALUE GREATER THAN OR EQUAL TO 60 ML/MIN/1.73 SQ METERS. CHRONIC KIDNEY DISEASE: <60mL/MIN/1.73 SQ METERS KIDNEY FAILURE: <15mL/MIN/1.73 SQ METERS THIS TEST SHOULD ONLY BE USED FOR PATIENTS 18 YEARS OF AGE AND OLDER. Performed By: #### [id number] #### [address] [address] VITAMIN B-12 Collected: 11/21/2017 Status: F Source: [facility] 9:31 AM [facility] REPOSITORY TYPE CODE TESTS RESULT OUT OF REFERENCE UNITS RANGE LAB N(LOINC) 180 - 914 pg/mL VITAMIN B12 305 Performed By: #### [id number] #### [address] [address] TSH Collected: 11/21/2017 Status: F Source: [facility] 9:31 AM [facility] REPOSITORY TYPE CODE TESTS RESULT OUT OF RANGE REFERENCE UNITS LAB TSH(LOINC) 0.34 - 5.60 uIU/ml TSH 1.32 Performed By: #### [id number] #### [facility],[address] [place] [address] ALLERGIES ALLERGIES DATE TYPE / CODE NAME / CODE REACTION SEVERITY SOURCE 07/20/2018 Drug hydroxyzine Rash Unknown [place] Allergy/416 HCl/[id number](RXN [facility] [id number]([facility]) [facility] ED CT) Repository 07/20/2018 Drug hydroxyzine Rash Unknown [place] Allergy/416 pamoate/[id number] [facility] [id number]([facility] (RXNORM) [facility] ED CT) Repository 06/13/2015 DRUG/[id number] HYDROXYZINE HCL Med [place] [address]([facility] CT) Repository Drug [place]/[id number]( Moderate [place] Allergy/416 RXNORM) (Severity [facility] [id number]([facility] ED CT) (Qualifier Repository Value) ENCOUNTERS ENCOUNTERS ADMIT/DISCHARGE ACCOUNT ADMITTING ENCOUNTER LOCATION SOURCE NUMBER CLASS 08/22/2018/08/23/19 [id number] ML [facility] [place] [address] DO oom: ERBed: B [facility] Repository 08/19/2018 [id number] [facility] ing:LAB Repository 08/12/2018 [id number] [facility] ing:LABSPEC Repository 07/24/2018 [id number] Ambulatory Building:[facility] Repository 07/20/2018/07/20/[id number] ing:WPOUTRoom Repository : [id number] 07/02/2018/07/02/20 [id number] Ambulatory Building:[address] Repository 04/22/2018 [id number] [facility] ing:WOBLAB Repository 04/18/2018/04/18/20 [id number] [facility] [place] [address] 18 SMITHA M oom: ERBed: F [facility] Repository 04/08/2018 [id number] [facility] ing:LAB Repository 03/04/2018/03/04/20 [id number] EZEQUIEL, Ambulatory [place] 18 [facility] Repository 01/16/2018/01/17/20 [id number] EZEQUIEL, Ambulatory [place] 18 [facility] Repository 11/21/2017/11/22/19 [id number] EZEQUIEL, Ambulatory [place] 18 [facility] Repository PAYERS PAYERS ENCOUNTER GUARANTOR PAYER SUBSCRIBER SOURCE 08/22/2018 JEWELS L Primary JEWELS L [place] CONNERDOB: [place] CONNERDOB: [facility] [id number] [facility] [id number] [address] [facility] [address] [place]ository [place] [address]Nkz: Number: 35[place], [place] [id number] [id number] () Date:Plan Name:X4 08/19/2018 JEWELS L Primary Insurance:[facility] JEWELS L Ezekiel [id number] [facility] CONNERDOB: [address] Number: [id number] [address]Qbb: 330 [id number] Repository [phone] () Date:[id number] [address]SN: 08/19/2018 Secondary NOT GIVENUNK Ezekiel Insurance:SELF PAY [facility] Number: Effective Repository Date:2018-08-13 08/12/2018 JEWELS Primary Insurance:[facility] JEWELS [place] [id number] [facility] CONNERDOB: [facility] [address] Number: [id number] [address] [id number] Repository [address]Dvl: [phone]) Date:[phone] () [address] [place] [address]TU: 08/12/2018 Secondary NOT GIVENUNK Ezekiel Insurance:SELF PAY [facility] Number: Effective Repository Date:2018-08-12 07/24/2018 JEWELS Primary Insurance[place] JEWELS L [facility] CONNERDOB: [facility] CONNERDOB: [facility] PLANPolicy [id number] Repository [facility] Number: [address] [facility] [address] [place] [address] [id number] [place] [address] 798[address]Atn: ([phone]) Date: [phone] (HP) 07/24/2018 Secondary JEWELS L [facility] Insurance:[place] CONNERDOB: [facility] [id number] Repository PLANPolicy Number: [address] [facility] [address] [id number] [address] [place] [address] Date: [id number] 07/20/2018 JEWELS Primary Insurance:[facility] JEWELS [place] [id number] [facility]: [address] Number: [id number] [facility] [address]Iyi: [phone] [id number] Repository [phone] (HP) Date:[id number] [address]XK: 07/20/2018 Secondary NOT GIVENUNK Ezekiel Insurance:SELF PAY [facility] Number: Effective Repository Date:2018-07-20 07/02/2018 JEWELS Primary Insurance[place] JEWELS L [facility] CONNERDOB: [facility] CONNERDOB: Hospital [facility] [id number] Repository [facility] Number: [address] [id number] [address] [place] [address] 37000Val: ([phone]) Date: [phone] (HP) 07/02/2018 Secondary JEWELS L [facility] Insurance:[place] CONNERDOB: [facility] [id number] Repository PLANPolicy Number: 2 [facility] [id number] [address] [place] [address] Date: 13[address] 04/22/2018 JEWELS Primary Insurance:[facility] JEWELS [place] [id number] [facility]ING [facility] CONNERDOB: [address], Number: [id number] [facility] [address]Ucd: [id number] Repository Date:9441-43-69MI BOX () [address] [place] [address]HU: 04/22/2018 Secondary NOT GIVENUNK [place] Insurance:SELF PAY [facility] Number: Effective Repository Date:2018-04-22 04/18/2018 JEWELS L Primary JEWELS L [place] Patricia CONNERDOB: Insurance:[place] CONNERDOB: [facility] [id number] [facility] [id number] [address] PLAN OUTPATPolicy 9 SR 60[facility], Repository [address] [place] [address] Number: [id number]: [phone] [id number] [phone] () Date:Plan Name:X4 04/08/2018 JEWELS Primary Insurance:[facility] JEWELS Ezekiel [id number] [facility] CONNERDOB: [facility] [address], Number: [id number] [address]Her: [id number] Repository Date:8517-57-20ES BOX () [address] [place] [address]UY: 04/08/2018 Secondary NOT GIVENUNK Ezekiel Insurance:SELF PAY [facility] Number: Effective Repository Date:2018-04-08 03/04/2018 JEWELS L Primary JEWELS L [place] Patricia CONNERDOB: Insurance:[place] CONNERDOB: [facility] [id number] [facility] [id number] [facility] [address] PLAN OUTPATPolicy [address] Repository [address] [place] [address] Number: [place] [address]Mam: [phone] [id number] [phone] () Date:Plan Name:X4 01/16/2018 JEWELS L Primary JEWELS L [place] CONNERDOB: Insurance:[place] CONNERDOB: [facility] [id number] [facility] [id number] [facility] [address], PLAN OUTPATPolicy [address] [place]ository [place] [address]Njg: Number: [id number] [id number] () Date:Plan Name:X4 11/21/2017 MARIAHTONNY Mariam Primary PEACE Patricia CONNERDOB: [facility] [id number] [facility] [id number] [facility] 60[facility]EL[facility] [place], PLAN OUTPATPolicy [address] [place]ository [place] [address]Gtf: Number: [id number] [id number] () Date:Plan Name:X4
== END 2018-07-20 20:30 | disposition home or self-care (01) ==
LOC: WPOUT 19:25 → WP 19:25
PROVIDERS: Visit Provider Obstetrics & Gynecology
DX: Z34.92 Encounter for supervision of normal pregnancy, unspecified, second trimester (principal); Z3A.25 25 weeks gestation of pregnancy
CPT/HCPCS: 59025; 59050; 82731; 99218; G0378

== ENCOUNTER → 2018-08-12 14:38 | Outpatient (CLI) | payer MEDICAID, SELFPAY ==
[2018-07-20 20:00] VITALS: BMI 33.6
[2018-08-12 15:36] LABS: Hematocrit 34.8 % (37-47); Mean Corp Hgb Conc 34.5 g/gl (32-36); Mean Corpuscular Hgb 31.9 pg (27.0-32.0); Mean Corpuscular Volume 92.6 fL (81-99); Mean Platelet Vol. 10.5 fl (6.2-12.0); Platelet Count 264 K/mm3 (150-450); Red Blood Count 3.76 M/mm3 (4.2-5.4)
[2018-08-12 15:44] LABS: Scan Indicated on CBC? Y/N NO
[2018-08-12 15:59] LABS: Vitamin D,25 Hydroxy 12.5 ng/mL (29.95-100.01)
[2018-08-12 16:00] LABS: ALB/GLOB Ratio 0.8 RATIO (0.9-2.4); AST(SGOT) 30 U/L (15-37); Alanine Aminotransfer ALT/SGPT 67 U/L (13-56); Albumin, Serum 2.8 g/dL (3.2-5.0); Alkaline Phosphatase 112 U/L (45-117); Anion Gap 9 (5-15); BUN 9 mg/dL (7-18); BUN/Creat Ratio 17.3 RATIO (10-20); Calcium,Total 8.4 mg/dL (8.5-10.1); Chloride 107 mmol/L (98-107); Creatinine, Serum 0.52 mg/dL (0.55-1.02); EST Glomerular Filtration Rate 153 mL/min (>60); Est Glom Filt Rate - Afr Amer 186 mL/min (>60); Globulin 3.6 g/dL (2.2-4.2); Glucose 142 mg/dL (74-106); Glucose Challenge Gest 1H 50g 142 mg/dL (70-140); Potassium 3.7 mmol/L (3.5-5.1); Protein, Total 6.4 g/dL (6.4-8.2); Sodium Level 137 mmol/L (136-145); Uric Acid 4.6 mg/dL (2.6-6.0)
== END ==
PROVIDERS: Visit Provider Obstetrics & Gynecology
DX: Z34.83 Encounter for supervision of other normal pregnancy, third trimester (principal); E55.9 Vitamin D deficiency, unspecified
CPT/HCPCS: 80053; 82306; 82950; 84550; 85027

== ENCOUNTER → 2018-08-19 10:08 | Outpatient (CLI) | payer MEDICAID, SELFPAY ==
[2018-07-20 20:00] VITALS: BMI 33.6
[2018-08-19 11:05] LABS: AST(SGOT) 29 U/L (15-37); Alanine Aminotransfer ALT/SGPT 60 U/L (13-56); Albumin, Serum 2.7 g/dL (3.2-5.0); Alkaline Phosphatase 123 U/L (45-117); Bilirubin, Direct 0.13 mg/dL (0.00-0.30); Globulin 4.3 g/dL (2.2-4.2)
[2018-08-19 12:04] LABS: Glucose GTT-Gestation. Fasting 99 mg/dL (<105)
[2018-08-19 12:05] LABS: Glucose GTT-Gestational 1 Hr 177 mg/dL (<190)
[2018-08-19 14:25] LABS: Glucose GTT-Gestational 2 Hr 102 mg/dL (<165)
[2018-08-19 14:32] LABS: Glucose GTT-Gestational 3 Hr 111 L (<145)
== END ==
PROVIDERS: Referring Provider Obstetrics & Gynecology; Visit Provider Obstetrics & Gynecology
DX: O24.912 Unspecified diabetes mellitus in pregnancy, second trimester (principal); R79.89 Other specified abnormal findings of blood chemistry; Z3A.00 Weeks of gestation of pregnancy not specified
CPT/HCPCS: 36415; 80076; 82951; 82952

== ENCOUNTER → 2018-09-30 13:57 | Outpatient (CLI) | payer MEDICAID, SELFPAY | PROVIDERS: Visit Provider Obstetrics & Gynecology | DX: Z36.85 Encounter for antenatal screening for Streptococcus B (principal) | CPT/HCPCS: 87081 ==

== ENCOUNTER 2018-10-11 21:25 | Inpatient (IN) | payer MEDICAID, SELFPAY ==
[2018-10-11 20:31] VITALS: BMI 33.4
[2018-10-11 20:55] LABS: Bacteria 0 SEEN /hpf (None Seen); Mucous, Urine 0 SEEN /hpf (<or=2+); Red Blood Cells-Urine 0 SEEN /hpf (0-5)
[2018-10-11 20:56] LABS: Color, Urine Yellow (Yellow); Glucose, Dipstick Normal (Normal); Ketone-Dipstick Negative (Negative); Leukocyte Esterase-Dipstick Negative /ul (Negative); Nitrite-Dipstick Negative (Negative); Occult Blood-Urine Negative /ul (Negative); Protein-Dipstick Negative (Negative); Urine Bilirubin Dipstick Negative (Negative); Urine Clarity Sl. Cloudy (Clear); Urine Urobilinogen Normal (Normal)
[2018-10-11 21:05] LABS: Squamous Epithelial Cells - UA 0-5 SEEN /hpf (5-10)
[2018-10-11 21:06] LABS: White Blood Cells 0-5 SEEN /hpf (0-5)
[2018-10-11 21:19] LABS: ROM Internal Control Test YES-OK TO RESULT pt. (Internal QC)
[2018-10-11 21:21] LABS: ROM Patient Test POSITIVE (Negative); Record Kit Lot#, ROM+ J7836
[2018-10-11 21:56] LABS: Hematocrit 36.4 % (37-47); Hemoglobin 12.1 g/dl (12.0-15.0); Mean Corp Hgb Conc 33.2 g/gl (32-36); Mean Corpuscular Hgb 30.6 pg (27.0-32.0); Mean Corpuscular Volume 91.9 fL (81-99); Mean Platelet Vol. 12.3 fl (6.2-12.0); Platelet Count 194 K/mm3 (150-450); RBC Distribution Width CV 13.5 % (11.6-14.6); RBC Distribution Width SD 44.7 fl (35.1-43.9); Red Blood Count 3.96 M/mm3 (4.2-5.4); White Blood Count 10.7 K/mm3 (4.4-11.0)
[2018-10-11 21:57] LABS: Scan Indicated on CBC? Y/N NO
--- NOTE | 2018-10-11 23:11 | PCM.PN.BLA ---
Progress Note LABOR PROGRESS NOTE AVSS GEN - breathing heavily through contractions. FHR 130, moderate variability, + accelerations, no decelerations, with some loss of contact TOCO 4/10 min SVE 6.5/90/-2, cephalic A/P: 23yo P1 at 37 3/7wga in active labor, Cat I FHR -Expectant management -Maternal and statuses reassuring
[2018-10-11] MEDS: Oxytocin 30 units/NS 500 ml 30 UNITS/500 ML IV.SOLN 334 UNITS IV (23:44)
[2018-10-12] VITALS (7 sets, daily range): BP systolic 103–120; BP diastolic 58–71; PULSE 71–98; RESP 16–18; TEMP 36–37.1; O2SAT 94
--- NOTE | 2018-10-12 | PCM.OPRPT ---
Vaginal Delivery Maternal Presentation: Active Labor, Spontaneous Rupture of Membranes Amniotic Membrane Rupture Type: Spontaneous at home Rupture of Membrane time: 15:53h 10/11/18 Amniotic Fluid Description: Clear Final ANAID: 10/29/18 Final ANAID Source: US <20 weeks Gestational age: 37 Weeks and 3 Days Date of Procedure: 10/12/18 Pre-Operative Diagnosis: 37 3/7wga Post-Operative Diagnosis: 37 3/7wga Surgery/ Procedure Performed: Spontaneous Vaginal Delivery Type of Anesthesia: None, Local with 1% lidocaine Description of Procedure: Patient FD/+2 station and pushed to deliver a female infant in [facility] [address]. The mouth was bulb suctioned at the perineum as Meconium was noted at time of delivery. The infant was placed on the maternal abdomen and further attended by nursery personnel. The cord was doubly clamped and cut at approximately 4 minutes of life. The placenta delivered spontaneously and appeared intact on inspection. IV pitocin was started. First degree perineal laceration was repaired with 3-0 Vicryl Rapide following 1% lidocaine administration locally. Cord gases sent. Sponge and needle counts correct x 2. Presentation: Vertex, TOMASA Placental Delivery Description: Spontaneous Placenta Disposition: [facility] Cord Vessel Description: 3 Vessels Nuchal Cord Compression: Without compression Cord Gases drawn per routine: ABG, VBG Cord Entanglement: None Estimated Blood Loss: 200ml A gender: Female (1 minute): 8 (5 minute): 9 Episiotomy Description: None Laceration: Midline, Perineal Extension/lac, 1st degree Medications given after delivery: IV Pitocin Complications: None
[2018-10-12] MEDS: Oxytocin 30 units/NS 500 ml 30 UNITS/500 ML IV.SOLN 167 UNITS IV (00:15)
[2018-10-12] MEDS: Ibuprofen 600 MG Tablet PO ×3 (00:58→18:56)
--- NOTE | 2018-10-12 09:46 | PN.OBGYN_ITS ---
Patient Problems: Active and Suspected Problems (spontaneous vaginal delivery) (Acute) 37 weeks gestation of (Acute) Subjective: Has not slept since delivery. Bottom is sore, but pain manageable. She feels better after shower and otherwise feels well. Denies heavy lochia. Objective: AVSS - Physical Exam General: Alert, Oriented x3, Cooperative, No apparent distress HEENT: Atraumatic, Normocephalic Lungs: Clear to auscultation, Normal air movement Cardiovascular: Regular rate, Regular Rhythm, Normal S1, Normal S2 Abdomen: Soft, Non Tender, Non-Distended, - - Fundus firm and nontender Extremities: No Calf Tenderness, - - +2 b/l LE edema Neurological: Neuro grossly intact Psych/Mental Status: Normal Affect, Appropriate, Alert and oriented to time, place, person, mood and affect Vital Signs Temp Pulse Resp BP 96.8 F L 75 18 117/68 10/12/18 08:00 10/12/18 08:00 10/12/18 08:00 10/12/18 08:00 Oxygen Delivery Method Room Air Weight: 94 kg Body Mass Index (BMI) 33.4 Laboratory Tests Past 24 Hrs 10/11/18 10/11/18 10/11/18 20:40 20:40 21:45 WBC 10.7 RBC 3.96 L Hgb 12.1 Hct 36.4 L MCV 91.9 MCH 30.6 MCHC 33.2 RDW 13.5 RDW Differential 44.7 H Plt Count 194 MPV 12.3 H Urine Color Yellow Urine Clarity Sl. Cloudy Urine pH 7.0 Ur Specific [place] 1.010 Urine Protein Negative Urine Glucose (UA) Normal Urine Ketones Negative Urine Occult Blood Negative Urine Nitrite Negative Urine Bilirubin Negative Urine Urobilinogen Normal Ur Leukocyte Esterase Negative Urine RBC 0 SEEN Urine WBC 0-5 SEEN Ur Squamous Epith Cells 0-5 SEEN Urine Bacteria 0 SEEN Urine Mucus 0 SEEN Vag Amniotic Fld Detect POSITIVE H Blood Type Antibody Screen 10/11/18 21:45 WBC RBC Hgb Hct MCV MCH MCHC RDW RDW Differential Plt Count MPV Urine Color Urine Clarity Urine pH Ur Specific [place] Urine Protein Urine Glucose (UA) Urine Ketones Urine Occult Blood Urine Nitrite Urine Bilirubin Urine Urobilinogen Ur Leukocyte Esterase Urine RBC Urine WBC Ur Squamous Epith Cells Urine Bacteria Urine Mucus Vag Amniotic Fld Detect Blood Type A POSITIVE Antibody Screen NEGATIVE Medical Necessity - Tobacco Use Smoking Status: Former smoker Assessment/Plan All Active Problems (spontaneous vaginal delivery) (Acute) 37 weeks gestation of (Acute) 23yo P2 PPD#1 s/p doing well. -Rh positive - -Routine care
--- NOTE | 2018-10-12 09:51 | DCINST_ITS ---
Discharge Diet: No Restrictions Discharge Activity: Return to Normal Activity, May Shower, May Take a Tub Bath May resume sexual activity in: 4-6 weeks Lifting Restrictions: 20-25lb Call your doctor if you observe: Fever of 101 or Higher, Inability to urinate, I nability to have a bowel movement, Using more than one pad per hour, Shortness of breath, Chest pain, Calf discomfort, Uncontrolled pain Cleanse incision/area with: Soap & Water Additional Instructions: If you experience any of the following, contact your healthcare provider. * Bleeding that soaks a pad every hour for 2 hours * Fever 100.4 or higher * Unrelieved incision or abdominal pain * Swelling, redness, discharge or bleeding from your incision or episiotomy site * Your incision begins to separate * Problems urinating (including inability to urinate or burning while urinating). * Visual changes * Severe headache * Flu-like symptoms * Pain or redness in one of both of your breasts * Pain, warmth, tenderness or swelling in your legs, especially the calf area * Frequent nausea and vomiting * Symptoms of depression or anxiety If you experience any of the following, call 911 or go to the nearest Emergency Room. * Chest pain * Problems breathing * Seizure activity * Partial or complete paralysis of a body part, slurred speech, weakness or drooping of the face, or a sudden inability to walk or hold your balance Allergies/Adverse Reactions: Allergies hydroxyzine HCl [From Vistaril] Allergy (Verified 07/20/18 19:53) Rash hydroxyzine pamoate [From Vistaril] Allergy (Verified 07/20/18 19:53) Rash Medications to take at Discharge Prenatabs FA 1 tab PO DAILY 11/25/15 Albuterol Inhaler [Ventolin Hfa] 2 puff INHALATION PRN PRN 07/20/18 Cholecalciferol (Vitamin D3) [Vitamin D3] 1 tab PO DAILY 07/20/18 Fluticasone/Vilanterol [Breo Ellipta 100-25 Mcg INH] 1 puff INHALATION DAILY 07/20/18 Ibuprofen [Motrin] 600 mg PO Q8H PRN PRN #30 tablet 10/12/18 Senna/Docusate Sodium [Senokot-S] 1 - 2 tablet PO DAILY PRN PRN #60 tablet 10/12/18 The following prescriptions were given: Ibuprofen [Motrin] 600 mg PO Q8H PRN PRN #30 tablet PRN Reason: Pain Please Follow Up With: Kendra Brock MD When: 6 weeks Primary Care Physician: Care Physician,No Primary [Primary Care Provider] - Test Results: Test results from this visit will be discussed in further detail at your follow- up appointment, if applicable.
[2018-10-12] MEDS: Prenatal Vits Tablet 1 TABLET PO (10:05)
[2018-10-12] MEDS: Acetaminophen 500 MG Tablet 1000 MG PO ×2 (13:32→22:20)
[2018-10-12] MEDS: Albuterol 2.5 MG/3 ML VIAL.NEB. INHALATION ×2 (13:47→18:28)
[2018-10-12] MEDS: Budesonide Respules 0.5 MG/2 ML AMPUL.NEB. INHALATION (18:31)
[2018-10-13 03:30] VITALS: BP 120/65; PULSE 74; RESP 16; TEMP 36.5; O2SAT 96
[2018-10-13] MEDS: Ibuprofen 600 MG Tablet PO (04:57)
[2018-10-13 07:40] VITALS: BP 117/63; PULSE 77; RESP 16; TEMP 36.5; O2SAT 96
--- NOTE | 2018-10-13 08:50 | PCM.PN.OB ---
Subjective: No complaints. Looks forward to going home today. Objective: avss - Physical Exam General: Alert, Oriented x3, Cooperative, No apparent distress HEENT: Atraumatic, Normocephalic Lungs: Normal air movement Cardiovascular: Regular rate, Regular Rhythm Abdomen: Soft, Non Tender, Non-Distended, - - fundus firm and nonteder Extremities: No edema, No Calf Tenderness Neurological: Neuro grossly intact Psych/Mental Status: Normal Affect, Appropriate, Alert and oriented to time, place, person, mood and affect Vital Signs Temp Pulse Resp BP Pulse Ox 97.7 F L 75 14 114/75 97 10/13/18 12:38 10/13/18 12:38 10/13/18 12:38 10/13/18 12:38 10/13/18 12:38 Oxygen Delivery Method Room Air Weight: 94 kg Body Mass Index (BMI) 33.4 Medical Necessity - Tobacco Use Smoking Status: Former smoker Assessment/Plan All Active Problems 37 weeks gestation of (Acute) (spontaneous vaginal delivery) (Acute) 23yo P2 PPD#2 s/p doing well. -Rh positive - -Routine care -d/c home today
--- NOTE | 2018-10-13 09:40 | NURSING ---
discharge instructions added to pts chart. C/s information added to chart by error. Vaginal delivery instructions added. Will not give c/s information.
[2018-10-13] MEDS: Acetaminophen 500 MG Tablet 1000 MG PO (09:51)
[2018-10-13] MEDS: Prenatal Vits Tablet 1 TABLET PO (09:52)
--- NOTE | 2018-10-13 12:25 | CASEMGMT ---
Social Work Assessment Labor and Delivery Unit Date of Referral: 10/12/2018 Time of Referral: [id number] Referred By: Dr. Brock Date of Intervention: 10/13/2018 Reason for Referral: maternal history of depression and anxiety; marital issues History obtained from: mother of baby (AMADEO) and the medical record. Household composition: MOB currently lives with MOB?s mother; MOB has oldest child at this home and plans to have live in this home. MOB reports home situation is safe and adequate. Patient's parent/guardian status: AMADEO Ochoa is to Dain Gross (age 31). MOB and FOB have been since March 2018. MOB reports this was a mutual agreement as MOB and FOB had been fighting a lot. MOB reports FOB?s ex, who is the mother to FOB?s 2 oldest children, kept getting in the middle of things, which MOB did not appreciate. MOB reports FOB now has a new girlfriend. MOB reports that when it is just MOB and FOB, usually get along but MOB has been frustrated with FOB?s level of support and involvement with MOB?s oldest child since the separation. MOB denies that FOB has ever been abusive, denies any safety concerns with this man, but at this point would not trust FOB to have MOB?s children alone due to FOB?s inconsistent involvement prior to delivery. MOB and FOB now have 2 children together: Doug, born December 2015 and baby yoselin Ren (born 10-11-2019). Medical History: AMADEO is G4, P1 to 2 after delivering baby yoselin Ren. MOB with care starting at 12 weeks and regular attendance after start of care. MOB with 2 miscarriages prior to first delivery in 2015. Baby yoselin Ren was born weighing 6 pounds 13 ounces, 37 weeks gestation, and Apgars 8 and 9 at 1 and 5 minutes of life. Educational Status: AMADEO graduated high school, is able to read, write, and to understand what is read. 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 Infant Supplies: MOB reports to have a car seat, crib, bassinet, clothing, diapers, wipes, and needed supplies to get started. Childcare/Caregiver(s): MOB is primary caregiver. Has babysitters and care set up through family on both MOB?s and FOB?s sides of the family. Transportation: No reported issues. Programs/Agencies Involved: MOB had [facility] for medical, WIC, and active with [facility] for Doug. MOB reports have already let [facility] know of interested in Gela to also have [facility] services. No other agency involvement reported. Behavioral Health Issues: Mental Health History: MOB reports history of depression and anxiety, with depression surfacing after Doug was born. MOB reports was treated with Zoloft and Buspar, remaining on this until found out about . MOB reports to feel that has been doing well of said medications and hopes to remain off in this period. MOB reports did have a couple of ?3 day? bouts of depression during this but that over the last several weeks has been feeling well. MOB denies having any thoughts, plans, intent, or past attempts at suicide. MOB did have a score of 10 on 04-22-18 on the [place] depression screen. Substance Use History: MOB denies alcohol or illicit substance use. MOB did smoke tobacco during this but quit by the end. MOB reports smoking cigarettes did help MOB during times of stress, just takes the irritability edge off. Drug Screens: Negative drug screen on 04-22-18. Family/Social Stressors: MOB and FOB during this , so this has been a big change. MOB reports feel to be coping with the separation fine but has been upset with limited and inconsistent involvement that FOMarla has shown to their older son Doug. Support Systems: MOB reports her mother, father, and other family members are good supports. MOB reports FOB?s sister and some family members are helpful. Reports also to have some friends that can rely on for support. Depression/Shaken Baby/Safe Sleeping: MOB is aware of shaken baby prevention and safe sleeping. MOB reports if symptoms of depression surface again would talk with doctor and consider restarting medications. MOB reports that does not like counseling, has history of such and did not like the counselor. ASSESSMENT: MOB pleasant, cooperative, and friendly during social work visit. MOB reports to have needed baby supplies, to have adequate support from family, and reports to feel a connection to baby girl Gela. MOB admits to discord with FOB which resulted in a mutual separation, denies safety concerns with FOB, and reports has set limits and boundaries with FOB regarding level of involvement with children moving forward (being consistent and until showing consistent can only visit the kids at someone?s house that the children are comfortable and familiar with). MOB reports to feel that mood and anxiety are managed at this time but reports understanding to be a risk for depression again. MOB did complete the [place] Depression screen during social work visit. Score is a 3 as compared to a 10 in April when initially screened. April was right after finding out about and split from . MOB reports if symptoms arise again would talk with doctors about need for antidepressants again. MOB reports that her children are motivators to keep living and to feel better; MOB voices desire to be able to care for children. MOB smiling, bright affect, good eye contact, and spontaneous conversation. MOB held baby during social work visit, handled baby gently and had baby to breast. MOB stroked baby?s head and smiled at baby. No concerns voiced by nursing staff regarding mother/child interactions. PLAN: MOB and baby to home today. MOB?s mom will be home this week to help out. MOB plans to continue with [facility] service for both children. Already connected to S and to WIC. No other services requested or indicated. -EVANGELISTA Albert, ONEL
[2018-10-13 12:38] VITALS: BP 114/75; PULSE 75; RESP 14; TEMP 36.5; O2SAT 97
--- NOTE | 2018-10-19 14:26 | NURSING ---
No Answer on follow up phone call voicemail left.
== END 2018-10-13 12:30 | disposition home or self-care (01) | DRG 560 ==
LOC: WPOUT 21:31
PROVIDERS: Admitting Provider Obstetrics & Gynecology; Referring Provider Obstetrics & Gynecology; Visit Provider Obstetrics & Gynecology
DX: O70.0 First degree perineal laceration during delivery (principal); O60.14X0 Preterm labor third trimester with preterm delivery third trimester, not applicable or unspecified; O26.23 Pregnancy care for patient with recurrent pregnancy loss, third trimester; O77.0 Labor and delivery complicated by meconium in amniotic fluid; Z3A.37 37 weeks gestation of pregnancy; Z37.0 Single live birth
CPT/HCPCS: 59025; 59050; 81001; 84112; 85027; 86850; 86900; 94640; 99218; 90686; G0378

== ENCOUNTER → 2019-06-24 13:10 | Outpatient (CLI) | payer MEDICAID, SELFPAY ==
[2019-06-24 14:14] LABS: Progesterone Level 8.18 ng/mL (See Comment)
[2019-06-24 16:39] LABS: Chlamydia Trachomatis by PCR Negative (Negative); Neisserai gonorrhoeae by PCR Negative (Negative); Probe Check PASS; Sample Adequacy Control PASS; Specimen Processing Control PASS
== END ==
PROVIDERS: Visit Provider Obstetrics & Gynecology
DX: O26.20 Pregnancy care for patient with recurrent pregnancy loss, unspecified trimester (principal); Z3A.00 Weeks of gestation of pregnancy not specified
CPT/HCPCS: 36415; 84144; 87491; 87591

== ENCOUNTER → 2019-07-22 11:40 | Outpatient (CLI) | payer MEDICAID, SELFPAY ==
[2019-07-22 13:26] LABS: Absolute Lymphocyte Count 1.87 X10^3/uL (0.83-4.51); Absolute Neutrophil Count 7.4 X10^3/uL (2.0-7.7); Basophil# 0.04 X10^3/uL; Basophil% 0.4 % (0-1); Eosinophil# 0.11 X10^3/uL; Eosinophils% 1.1 % (0-5); Hematocrit 38.3 % (37-47); Hemoglobin 13.1 g/dL (12.0-15.0); Lymphocyte # 1.87 X10^3/ul (4.0); Lymphocyte % 19.1 % (19-41); Mean Corp Hgb Conc 34.2 g/dL (32-36); Mean Corpuscular Hgb 30.3 pg (27.0-32.0); Mean Corpuscular Volume 88.7 fL (81-99); Mean Platelet Vol. 10.2 fl (6.2-12.0); Monocyte# 0.39 X10^3/uL; NRBC Flagged by Analyzer 0 % (0-5); Neutrophil # 7.36 X10^3/uL (2.7-7.7); Neutrophil % 75.2 % (47-70); Platelet Count 315 K/mm3 (150-450); RBC Distribution Width CV 12.1 % (11.6-14.6); RBC Distribution Width SD 39.3 fl (35.1-43.9); Red Blood Count 4.32 M/mm3 (4.2-5.4); White Blood Count 9.8 K/mm3 (4.4-11.0)
[2019-07-22 13:42] LABS: Color, Urine Yellow (Yellow); Glucose, Dipstick Normal (Normal); Ketone-Dipstick Negative (Negative); Leukocyte Esterase-Dipstick 25 /ul (Negative); Nitrite-Dipstick Negative (Negative); Occult Blood-Urine Negative /ul (Negative); Protein-Dipstick Negative (Negative); Specific Gravity, Urine 1.005 (1.002-1.030); Urine Bilirubin Dipstick Negative (Negative); Urine Clarity Clear (Clear); Urine Urobilinogen Normal (Normal)
[2019-07-22 13:56] LABS: Amphetamine Urine VISTA NEGATIVE (<1000 ng/mL); Barbiturate Urine VISTA NEGATIVE (< 200 ng/mL); Benzodiazepine Urine VISTA NEGATIVE (< 200 ng/mL); Cocaine Urine VISTA NEGATIVE (< 300 ng/mL); Ecstacy Urine VISTA NEGATIVE (< 500 ng/mL); Methadone Urine VISTA NEGATIVE (< 300 ng/mL); PCP Urine VISTA NEGATIVE (< 25 ng/mL); THC Urine VISTA NEGATIVE (< 50 ng/mL)
[2019-07-22 13:57] LABS: Vista UDS pH Range 6
[2019-07-22 14:12] LABS: COTININE Drug Screen Positive (<200 ng/mL)
[2019-07-22 14:31] LABS: HIV - WCH Non-Reactive (Nonreactive); Hepatitis B Surface Antigen Non-Reactive (Nonreactive); Hepatitis C Antibody Non-Reactive (Nonreactive); Rubella IgG 12.1 IU/mL; Vitamin D,25 Hydroxy 12.7 ng/mL (29.95-100.01)
[2019-07-23 02:17] LABS: Prenatal RPR NONREACTIVE (NONREACTIVE)
== END ==
PROVIDERS: Visit Provider Obstetrics & Gynecology
DX: Z34.81 Encounter for supervision of other normal pregnancy, first trimester (principal)
CPT/HCPCS: 36415; 80307; 81002; 82306; 84443; 85025; 86703; 86762; 86803; 87340

== ENCOUNTER → 2019-07-24 13:22 | Outpatient (CLI) | payer MEDICAID, SELFPAY ==
[2019-07-24 15:22] LABS: Progesterone Level 14.28 ng/mL (See Comment)
== END ==
PROVIDERS: Visit Provider Obstetrics & Gynecology
DX: Z34.81 Encounter for supervision of other normal pregnancy, first trimester (principal)
CPT/HCPCS: 36415; 84144

== ENCOUNTER → 2019-08-06 14:23 | Outpatient (CLI) | payer MEDICAID, SELFPAY | PROVIDERS: Referring Provider Obstetrics & Gynecology; Visit Provider Obstetrics & Gynecology | DX: O26.891 Other specified pregnancy related conditions, first trimester (principal); R30.0 Dysuria; R10.30 Lower abdominal pain, unspecified; Z3A.00 Weeks of gestation of pregnancy not specified | CPT/HCPCS: 87086; 87088 ==

== ENCOUNTER → 2019-08-28 | Outpatient (CLI) | payer MEDICAID, SELFPAY ==
[2019-08-28 14:11] LABS: Progesterone Level 30.54 ng/mL (See Comment)
== END | disposition home or self-care (01) ==
LOC: WOBLAB 10:56
PROVIDERS: Visit Provider Obstetrics & Gynecology
DX: O09.219 Supervision of pregnancy with history of pre-term labor, unspecified trimester (principal); Z3A.00 Weeks of gestation of pregnancy not specified
CPT/HCPCS: 36415; 84144

== ENCOUNTER → 2019-09-16 11:59 | Outpatient (CLI) | payer MEDICAID, SELFPAY ==
[2019-09-19 03:06] LABS: AFP MoM Value 1.01 (.); AFP Value-EIA 36.8 ng/mL (.); Comment Report (.); DIA MoM Value 1.42 (.); DIA Value-EIA 205.68 pg/mL (.); DSR (By Age) 998 (.); DSR (Second Trimester) 2260 (.); Gestat. Age Based On As provided (.); Gestational Age 17.7 WEEKS (.); Insulin Dep Diabetes No (.); Maternal Age At EDD 25.7 yr (.); hCG MoM 0.71 (.); hCG Value 18134 mIU/mL (.)
[2019-09-23 14:00] LABS: CF, Screen Comment: (.)
== END ==
PROVIDERS: Visit Provider Obstetrics & Gynecology
DX: Z34.82 Encounter for supervision of other normal pregnancy, second trimester (principal)
CPT/HCPCS: 36415; 81220; 82105; 82677; 84702

== ENCOUNTER → 2019-10-07 09:28 | Outpatient (CLI) | payer MEDICAID, SELFPAY ==
[2019-10-07 11:25] LABS: Progesterone Level 53.86 ng/mL (See Comment)
== END ==
PROVIDERS: Visit Provider Obstetrics & Gynecology
DX: O09.212 Supervision of pregnancy with history of pre-term labor, second trimester (principal); Z3A.00 Weeks of gestation of pregnancy not specified
CPT/HCPCS: 36415; 84144

== ENCOUNTER → 2019-12-08 10:36 | Outpatient (CLI) | payer MEDICAID, SELFPAY ==
[2019-12-08 15:26] LABS: Hematocrit 37.1 % (37-47); Hemoglobin 12.4 g/dL (12.0-15.0); Mean Corp Hgb Conc 33.4 g/dL (32-36); Mean Corpuscular Hgb 31.6 pg (27.0-32.0); Mean Corpuscular Volume 94.6 fL (81-99); Mean Platelet Vol. 10.7 fl (6.2-12.0); Platelet Count 234 K/mm3 (150-450); RBC Distribution Width CV 12.8 % (11.6-14.6); RBC Distribution Width SD 44.2 fl (35.1-43.9); Red Blood Count 3.92 M/mm3 (4.2-5.4); White Blood Count 11.7 K/mm3 (4.4-11.0)
[2019-12-08 15:41] LABS: Glucose Challenge Gest 1H 50g 160 mg/dL (70-140)
== END ==
PROVIDERS: Referring Provider Obstetrics & Gynecology; Visit Provider Obstetrics & Gynecology
DX: Z34.83 Encounter for supervision of other normal pregnancy, third trimester (principal)
CPT/HCPCS: 82950; 85027

== ENCOUNTER → 2019-12-15 09:43 | Outpatient (CLI) | payer MEDICAID, SELFPAY ==
[2019-12-15 10:55] LABS: Glucose GTT-Gestation. Fasting 104 mg/dL (<105)
== END ==
PROVIDERS: PCP Nurse Practitioner Family; Referring Provider Obstetrics & Gynecology; Visit Provider Obstetrics & Gynecology
DX: O24.912 Unspecified diabetes mellitus in pregnancy, second trimester (principal); Z3A.00 Weeks of gestation of pregnancy not specified
CPT/HCPCS: 36415; 82951; 82952

== ENCOUNTER 2020-01-12 18:45 | Outpatient (CLI) | payer MEDICAID, SELFPAY ==
[2020-01-12 18:58] VITALS: BP 111/71; PULSE 104
[2020-01-12 19:06] VITALS: BMI 33.7
[2020-01-12 19:10] VITALS: PULSE 102; TEMP 36.9; O2SAT 98
[2020-01-12 19:28] LABS: Bacteria 0 SEEN /hpf (None Seen); Mucous, Urine 0 SEEN /hpf (<or=2+); Red Blood Cells-Urine 0 SEEN /hpf (0-5); White Blood Cells 0 SEEN /hpf (0-5)
[2020-01-12 20:08] LABS: Color, Urine Yellow (Yellow); Glucose, Dipstick Normal (Normal); Leukocyte Esterase-Dipstick Negative /ul (Negative); Nitrite-Dipstick Negative (Negative); Occult Blood-Urine Negative /ul (Negative); Protein-Dipstick Negative (Negative); Urine Bilirubin Dipstick Negative (Negative); Urine Clarity Sl. Cloudy (Clear); Urine Urobilinogen 1 mg/dl (Normal); Urine pH 6.5 (5.0 - 8.0)
[2020-01-12 20:32] LABS: Ketone-Dipstick 150 mg/dl (Negative); Squamous Epithelial Cells - UA 0-5 SEEN /hpf (5-10)
--- NOTE | 2020-01-12 20:32 | OB.TRI.NOTE ---
- Problem List (1) 34 weeks gestation of Status: Acute (2) Decreased movement Status: Acute Qualifiers: Fetus number: single or unspecified fetus Trimester: third trimester Qualified Code(s): O36.8130 - Decreased movements, third trimester, not applicable or unspecified History of Present Illness Date of Service: 01/12/20 Was patient seen by the physician?: No Reason For Visit: CRAMPING, NAUSEA/VOMITING Date of Service: 01/12/20 Final ANAID: 02/19/20 Final ANAID Source: US <20 weeks Gestational age: 34 Weeks and 4 Days History of Present Illness: Called in to OB office today reporting slight cramping after nausea and vomiting. She was at work with decreased movement. Arrived at triage six hours later for evaluation. Allergies hydroxyzine HCl [From Vistaril] Allergy (Verified 07/20/18 19:53) Rash hydroxyzine pamoate [From Vistaril] Allergy (Verified 07/20/18 19:53) Rash Laboratory Studies: Laboratory Tests 01/12/20 Range/Units 19:05 Urine Color Yellow (Yellow) Urine Clarity Sl. Cloudy (Clear) Urine pH 6.5 (5.0 - 8.0) Ur Specific [place] 1.010 (1.002-1.030) Urine Protein Negative (Negative) mg/dl Urine Glucose (UA) Normal (Normal) mg/dl Urine Ketones 150 H (Negative) mg/dl Urine Occult Blood Negative (Negative) /ul Urine Nitrite Negative (Negative) Urine Bilirubin Negative (Negative) mg/dL Urine Urobilinogen 1 H (Normal) mg/dl Ur Leukocyte Esterase Negative (Negative) /ul Review of Systems Constitutional: Reports: -. Denies: Chills, Fever, Weight Change HEENT: Denies: Head Aches, Sinus Congestion, Sinus Drainage Cardiovascular: Denies: Chest Pain, Palpitations Respiratory: Denies: Cough, Shortness of breath at rest, Sputum production Gastrointestinal: Reports: Nausea, Vomiting, - - mild cramping. Denies: Abdominal Pain Genitourinary: Reports: Frequency. Denies: Dysuria Musculoskeletal: Denies: Joint Pain, Joint Tenderness Skin: Denies: Rash, Wounds Neurological: Denies: Numbness, Tingling, Focal weakness Psychiatric: Denies: Anxiety, Depression, Homicidal Ideations, Suicidal Ideations Hematologic/ Lymphatic: Denies: Easy Bruising, Easy Bleeding Physical Exam Vitals: Vital Signs Temp Pulse BP Pulse Ox 98.4 F 102 H 111/71 98 01/12/20 19:10 01/12/20 19:10 01/12/20 18:58 01/12/20 19:10 General: Alert, Oriented x3, No apparent distress HEENT: Atraumatic, Normocephalic. Negative for: Thyromegaly, Lymphadenopathy Cardiovascular: Regular rate, Regular Rhythm Lungs: Clear to auscultation Abdomen: Bowel Sounds Present, Gravid Neurological: Deep Tendon Reflexes 2+/4 and Symmetrical, Neuro grossly intact FREIGHT MANAGER: Normal external genitalia. Negative for: Vulvar lesions Estimated gestational size: Appropriate for gestational size Presentation: Cephalic Cervix Dilation (cm): 0 Station: -3 Effacement (%): 0 NST - FHR Rate Baby A Baseline: 140 Variability:: Moderate Accelerations:: 15 x 15 NST Reactive:: Yes FHR Category:: Category I Uterine Activity:: 2-5m Impression/Plan A/P: at 34w4d gestation Nausea and vomiting, but able to keep fluids down Urinary frequency, UA sent and WNL with exception of +ketones Category I reactive NST UC 2-5m, palpating mild SVE fingertip/high/thick/long movement felt throughout History of two previous deliveries and on Progesterone until 36 weeks P: To discharge home to rest and hydrate If UC become stronger or closer together to return to Understands signs of labor and when to call Will stay home from work tomorrow and excuse to be wrote
[2020-01-12 20:33] LABS: Amorphous Sediment 1+ URATE
== END 2020-01-12 20:35 | disposition home or self-care (01) ==
LOC: WPOUT 18:51 → OBT 18:52
PROVIDERS: PCP Nurse Practitioner Family; Visit Provider Obstetrics & Gynecology
DX: O26.893 Other specified pregnancy related conditions, third trimester (principal); R11.2 Nausea with vomiting, unspecified; R35.0 Frequency of micturition; O36.8130 Decreased fetal movements, third trimester, not applicable or unspecified; Z3A.34 34 weeks gestation of pregnancy
CPT/HCPCS: 59025; 59050; 81001; 99218; G0378

== ENCOUNTER → 2020-01-22 13:44 | Outpatient (CLI) | payer MEDICAID, SELFPAY ==
[2020-01-12 19:06] VITALS: BMI 33.7
== END ==
PROVIDERS: PCP Nurse Practitioner Family; Visit Provider Obstetrics & Gynecology
DX: Z36.85 Encounter for antenatal screening for Streptococcus B (principal)
CPT/HCPCS: 87081

== ENCOUNTER 2020-01-27 23:07 | Outpatient (CLI) | payer MEDICAID, SELFPAY ==
[2020-01-27 23:29] VITALS: BP 135/83; PULSE 95
[2020-01-27 23:40] VITALS: BMI 34.4
[2020-01-27 23:59] VITALS: BP 131/80; PULSE 88
[2020-01-28 00:15] LABS: ROM Internal Control Test YES-OK TO RESULT pt. (Internal QC); ROM Patient Test Negative (Negative)
[2020-01-28 01:54] VITALS: BP 130/69; PULSE 72
--- NOTE | 2020-01-28 08:32 | OB.TRI.HP_ITS ---
- Problem List (1) 36 weeks gestation of Status: Acute History of Present Illness Date of Service: 01/27/20 Was patient seen by the physician?: No Reason For Visit: RULE OUT LABOR Date of Service: 01/27/20 Final ANAID: 02/19/20 Final ANAID Source: US <20 weeks Gestational age: 36 Weeks and 6 Days History of Present Illness: Thinks her water broke at home and having mild contractions Allergies hydroxyzine HCl [From Vistaril] Allergy (Verified 01/27/20 23:40) Rash hydroxyzine pamoate [From Vistaril] Allergy (Verified 07/20/18 19:53) Rash Laboratory Studies: Laboratory Tests 01/27/20 Range/Units 23:50 Vag Amniotic Fld Detect Negative (Negative) Review of Systems Constitutional: Denies: Chills, Fever, Weight Change HEENT: Denies: Head Aches, Sinus Congestion, Sinus Drainage Cardiovascular: Denies: Chest Pain, Palpitations Respiratory: Denies: Cough, Shortness of breath at rest, Sputum production Gastrointestinal: Denies: Abdominal Pain, Nausea, Vomiting Genitourinary: Denies: Dysuria Musculoskeletal: Denies: Joint Pain, Joint Tenderness Skin: Denies: Rash, Wounds Neurological: Denies: Numbness, Tingling, Focal weakness Psychiatric: Denies: Anxiety, Depression, Homicidal Ideations, Suicidal Ideations Hematologic/ Lymphatic: Denies: Easy Bruising, Easy Bleeding Physical Exam Vitals: Vital Signs Pulse BP 72 130/69 H 01/28/20 01:54 01/28/20 01:54 General: Alert, Oriented x3, No apparent distress HEENT: Atraumatic, Normocephalic. Negative for: Thyromegaly, Lymphadenopathy Cardiovascular: Regular rate, Regular Rhythm Lungs: Clear to auscultation Abdomen: Bowel Sounds Present, Gravid Neurological: Deep Tendon Reflexes 2+/4 and Symmetrical, Neuro grossly intact OUTDOOR RECREATION SPECIALIST: Normal external genitalia. Negative for: Vulvar lesions Estimated gestational size: Appropriate for gestational size Presentation: Cephalic Cervix Dilation (cm): 1 Station: -3 Effacement (%): 20 NST - FHR Rate Baby A Baseline: 130 Variability:: Moderate Accelerations:: 15 x 15 Decelerations:: None NST Reactive:: Yes FHR Category:: Category I Uterine Activity:: irregular 1-20m Impression/Plan A/P: at 36w5d here to r/o rupture of membranes ROM+ negative NST Category I UC irregular, after hydration Q5-20m, palpating mild and not felt by patient SVE unchanged over the course of four hours To discharge home to rest and hydrate
== END 2020-01-28 05:00 | disposition home or self-care (01) ==
LOC: WPOUT 23:10 → WP 23:10
PROVIDERS: PCP Nurse Practitioner Family; Referring Provider Obstetrics & Gynecology; Visit Provider Obstetrics & Gynecology
DX: Z34.83 Encounter for supervision of other normal pregnancy, third trimester (principal); Z3A.36 36 weeks gestation of pregnancy
CPT/HCPCS: 59025; 59050; 84112; 99218; G0378

== ENCOUNTER 2020-02-03 05:09 | Inpatient (IN) | payer MEDICAID, SELFPAY ==
[2020-02-03] VITALS (19 sets, daily range): BP systolic 109–133; BP diastolic 67–90; PULSE 56–96; RESP 16–18; TEMP 35.8–36.9; O2SAT 96–99; BMI 34.0
[2020-02-03] MEDS: Lactated Ringers 1,000 ML 50 ML IV (05:18)
[2020-02-03 05:28] LABS: Absolute Lymphocyte Count 3.89 X10^3/uL (0.83-4.51); Absolute Neutrophil Count 10.4 X10^3/uL (2.0-7.7); Basophil# 0.06 X10^3/uL; Basophil% 0.4 % (0-1); Eosinophil# 0.34 X10^3/uL; Eosinophils% 2.2 % (0-5); Hematocrit 42.1 % (37-47); Hemoglobin 14.5 g/dL (12.0-15.0); Lymphocyte # 3.89 X10^3/ul (4.0); Lymphocyte % 24.6 % (19-41); Mean Corp Hgb Conc 34.4 g/dL (32-36); Mean Corpuscular Hgb 31.6 pg (27.0-32.0); Mean Corpuscular Volume 91.7 fL (81-99); Mean Platelet Vol. 11.3 fl (6.2-12.0); Monocyte# 1.03 X10^3/uL; Monocyte% 6.5 % (0-10); NRBC Flagged by Analyzer 0 % (0-5); Neutrophil # 10.42 X10^3/uL (2.7-7.7); Neutrophil % 65.9 % (47-70); Platelet Count 277 K/mm3 (150-450); RBC Distribution Width CV 12.4 % (11.6-14.6); RBC Distribution Width SD 41.2 fl (35.1-43.9); Red Blood Count 4.59 M/mm3 (4.2-5.4); White Blood Count 15.8 K/mm3 (4.4-11.0)
--- NOTE | 2020-02-03 05:40 | PCM.HP.OB ---
- Problem List (1) 37 weeks gestation of Status: Acute History Date of Admission: 02/03/20 Final ANAID: 02/19/20 Final ANAID Source: US <20 weeks Gestational age: 37 Weeks and 5 Days History of this : This is a 24 year-old, G [5], P [2], at 37 weeks gestational age. Allergies hydroxyzine HCl [From Vistaril] Allergy (Verified 02/03/20 05:15) Rash hydroxyzine pamoate [From Vistaril] Allergy (Verified 02/03/20 05:15) Rash Home Medications: Home Medications Prenatabs FA 1 tab PO DAILY 11/25/15 Albuterol Inhaler [Ventolin Hfa] 2 puff INHALATION PRN PRN 07/20/18 Smoking Status: Former smoker Alcohol: None Number of Fetus(es): 1 NST - FHR Rate Baby A Baseline: 135 Variability:: Moderate Accelerations:: 15 x 15 Decelerations:: None NST Reactive:: Yes FHR Category:: Category I Uterine Activity:: 1-3m History Past Pregnancies: Past Pregnancies PRIOR DELIVERY HISTORY DEL DATE GEST LAB WT LB WT OZ TYPE ANES LABOR TX Aug 19 4 0 0 0 Sab None No Oct 21 37 6 6 13 Vag None No Mar 15 4 0 0 0 Sab None No December 18 35 8 6 12 Vag None No Labs: Mom's Labs & Results 02/03/20 02/03/20 05:20 05:20 WBC 15.8 H RBC 4.59 Hgb 14.5 Hct 42.1 MCV 91.7 MCH 31.6 MCHC 34.4 RDW Std Deviation 41.2 RDW Coeff of Rosana 12.4 Plt Count 277 MPV 11.3 Immature Gran % (Auto) 0.400 Neut % (Auto) 65.9 Lymph % (Auto) 24.6 [place] % (Auto) 6.5 Eos % (Auto) 2.2 Baso % (Auto) 0.4 Absolute Neuts (auto) 10.4 H Absolute Lymphs (auto) 3.89 Nucleated RBC % 0 Blood Type Pending Antibody Screen Pending Social History Alleged father Dain Hx Smoking Yes Smoking Status Former smoker Expected Delivery Method: Spontaneous Vaginal Number of Visits: 10 Review of Systems Constitutional: Denies: Chills, Fever, Weight Change HEENT: Denies: Head Aches, Sinus Congestion, Sinus Drainage Cardiovascular: Denies: Chest Pain, Palpitations Respiratory: Denies: Cough, Shortness of breath at rest, Sputum production Gastrointestinal: Denies: Abdominal Pain, Nausea, Vomiting Genitourinary: Denies: Dysuria Musculoskeletal: Denies: Joint Pain, Joint Tenderness Skin: Denies: Rash, Wounds Neurological: Denies: Numbness, Tingling, Focal weakness Psychiatric: Denies: Anxiety, Depression, Homicidal Ideations, Suicidal Ideations Hematologic/ Lymphatic: Denies: Easy Bruising, Easy Bleeding Physical Exam Vitals: Vital Signs Temp Pulse BP Pulse Ox 96.5 F L 68 129/85 H 99 02/03/20 05:03 02/03/20 05:52 02/03/20 05:52 02/03/20 05:52 General: Alert, Oriented x3, No apparent distress HEENT: Atraumatic, Normocephalic. Negative for: Thyromegaly, Lymphadenopathy Cardiovascular: Regular rate, Regular Rhythm Lungs: Clear to auscultation Abdomen: Bowel Sounds Present, Gravid Neurological: Deep Tendon Reflexes 2+/4 and Symmetrical, Neuro grossly intact BEAUTY OPERATOR APPRENTICE: Normal external genitalia. Negative for: Vulvar lesions Estimated gestational size: Appropriate for gestational size Presentation: Cephalic Cervix Dilation (cm): 8 - RN assess Station: -2 Effacement (%): 90 Assessment/Plan All Active Problems 34 weeks gestation of (Acute) Decreased movement (Acute) 36 weeks gestation of (Acute) 37 weeks gestation of (Acute) (spontaneous vaginal delivery) (Acute) A/P: This is a 24 year-old, G [5], P [2], at 37 weeks gestational age. Arrival in active labor NST Category I FHR UC 1-3m SVE /-2 with bulging bag of amniotic fluid Plans natural Expect Procedure Criteria Procedure Type: Elective COVID Risk Discussion: The surgeon/proceduralist and patient have discussed in detail the risk of exposure to and/or potential harm posed by the COVID-19 virus with having a surgery/procedure at this time versus the risk of delaying the surgery/procedure. It is not possible to know either the risk of delaying the surgery or procedure or chance of getting an infection with perfect accuracy, but a joint decision was made between the patient and the surgeon/proceduralist to proceed at this time with the scheduled surgery/procedure as indicated on the consent form.
[2020-02-03] MEDS: Oxytocin 30 units/NS 500 ml 30 UNITS/500 ML IV.SOLN 334 UNITS IV (05:45)
--- NOTE | 2020-02-03 06:00 | PCM.OPRPT ---
Problem List (1) 37 weeks gestation of Status: Acute Vaginal Delivery Maternal Presentation: Active Labor Amniotic Membrane Rupture Type: Spontaneous Amniotic Fluid Description: Clear Final ANAID: 02/19/20 Final ANAID Source: US <20 weeks Gestational age: 37 Weeks and 5 Days Date of Procedure: 02/03/20 Pre-Operative Diagnosis: Labor Post-Operative Diagnosis: S/P Surgery/ Procedure Performed: Spontaneous Vaginal Delivery Type of Anesthesia: None Description of Procedure: Patient was FD at +3 station with spontaneous urge to push with precipitous labor. She pushed well to deliver head in OA to NATHAN followed by body with next push. Terminal meconium noted. The was placed on the maternal abdomen. The cord was doubly clamped and cut by CNM at approximately 4 minutes of life and further attended by nursery personnel. With gentle traction the placenta delivered spontaneously and appeared intact on inspection. 1st degree perineal laceration noted with good hemostasis, no repair needed. EBL 150. Apgars 8/9. Sponge count correct x 2. Presentation: Vertex Placental Delivery Description: Spontaneous Placenta Disposition: [facility] Cord Vessel Description: 3 Vessels Cord Entanglement: - - around body x1 Estimated Blood Loss: 150 Infant A gender: Female Episiotomy Description: None Laceration: Perineal Extension/lac, 1st degree Medications given after delivery: IV Pitocin
--- NOTE | 2020-02-03 06:06 | DCINST_ITS ---
Discharge Diet: No Restrictions Discharge Activity: Return to Normal Activity, May not drive while taking narcotic pain medications., May Shower May resume sexual activity in: 4-6 weeks Additional Activity Instructions:: Nothing in the vagina for 4-6 weeks. You may return to work/school in 6 weeks. Call your doctor if your incision/area has: Continuous Slow Oozing, Sudden Increased Bleeding, Increased Pain/ Swelling, Increased Redness, Foul Smelling Discharge Additional Instructions: If you experience any of the following, contact your healthcare provider. * Bleeding that soaks a pad every hour for 2 hours * Fever 100.4 or higher * Unrelieved incision or abdominal pain * Swelling, redness, discharge or bleeding from your incision or episiotomy site * Your incision begins to separate * Problems urinating (including inability to urinate or burning while urinating). * Visual changes * Severe headache * Flu-like symptoms * Pain or redness in one of both of your breasts * Pain, warmth, tenderness or swelling in your legs, especially the calf area * Frequent nausea and vomiting * Symptoms of depression or anxiety If you experience any of the following, call 911 or go to the nearest Emergency Room. * Chest pain * Problems breathing * Seizure activity * Partial or complete paralysis of a body part, slurred speech, weakness or drooping of the face, or a sudden inability to walk or hold your balance Allergies/Adverse Reactions: Allergies hydroxyzine HCl [From Vistaril] Allergy (Verified 02/03/20 05:15) Rash hydroxyzine pamoate [From Vistaril] Allergy (Verified 02/03/20 05:15) Rash Medications to take at Discharge Prenatabs FA 1 tab PO DAILY 11/25/15 Albuterol Inhaler [Ventolin Hfa] 2 puff INHALATION PRN PRN 07/20/18 Progesterone, Micronized [Progesterone] 200 mg PO DAILY 02/03/20 Promethazine HCl 12.5 mg PO DAILY 02/03/20 Zofran 4 mg PO PRN PRN 02/03/20 Please Follow Up With: Connie Ordaz CNM When: Call to make an appointment with your doctor in [facility] in 2 weeks for a telehealth appointment and 6 weeks for a routine appointment. Primary Care Physician: Lorraine Flores NP-C [Primary Care Provider] - Test Results: Test results from this visit will be discussed in further detail at your follow- up appointment, if applicable.
[2020-02-03] MEDS: Methylergonovine 0.2 MG/ML Ampul IM (06:12)
[2020-02-03] MEDS: 0.9% Saline Lock 10 ML Syringe IV (08:19)
[2020-02-03] MEDS: Ibuprofen 600 MG Tablet PO ×2 (11:07→22:17)
[2020-02-03] MEDS: Ondansetron 8 MG Tablet PO (11:07)
[2020-02-04 03:09] VITALS: BP 107/67; PULSE 76; RESP 14; TEMP 36.1
[2020-02-04] MEDS: Ibuprofen 600 MG Tablet PO (07:23)
--- NOTE | 2020-02-04 08:14 | PCM.PN.OB ---
Subjective: Feeling well today. Moderate cramps when she is , but well controlled with Ibuprofen and heat. Denies heavy bleeding. well with no concerns and would like to discharge today. Objective: VSS. Fundus is firm, midline, u/1. Lochia rubra moderate. - Physical Exam Vitals/I&O's: Vital Signs Temp Pulse Resp BP Pulse Ox 97.2 F L 76 16 129/76 H 97 02/04/20 08:30 02/04/20 08:30 02/04/20 08:30 02/04/20 08:30 02/03/20 15:39 Oxygen Delivery Method Room Air Weight: 95.708 kg Body Mass Index (BMI) 34.0 Intake and Output for Last 24 Hours 02/02/20 02/03/20 02/04/20 23:59 23:59 23:59 Intake Total 750 / 750 Output Total 300 / 300 Balance 450 / 450 General: Alert, Oriented x3, Cooperative HEENT: Atraumatic, PERRLA, EOMI, Normocephalic Neck: Supple, No JVD, Negative Carotid Bruits Lungs: Clear to auscultation, Normal air movement Cardiovascular: Regular rate, No murmurs Abdomen: Bowel Sounds Present, Soft, Non Tender Extremities: No edema, Capillary Refill Less than 3 Seconds Skin: No rashes, No breakdown Musculoskeletal: No Tenderness to Palpation of Joints or Extremities Neurological: Cranial nerves II-XII grossly intact Psych/Mental Status: Normal Affect, Appropriate Medical Necessity - Tobacco Use Smoking Status: Former smoker Assessment/Plan All Active Problems 34 weeks gestation of (Acute) Decreased movement (Acute) 36 weeks gestation of (Acute) 37 weeks gestation of (Acute) (spontaneous vaginal delivery) (Acute) A/P: S/P Day #1 mother Normal involution and course Abdominal cramping, to continue Ibuprofen, Tylenol and heat PRN To make 2 week and 6 week PP visits Discussed signs of PPD and understands when to call To discharge home
[2020-02-04 08:24] VITALS: BP 129/76; PULSE 76
[2020-02-04 08:30] VITALS: BP 129/76; PULSE 76; RESP 16; TEMP 36.2
== END 2020-02-04 11:45 | disposition home or self-care (01) | DRG 560 ==
LOC: WPOUT 05:11 → WP 05:11
PROVIDERS: Admitting Provider Obstetrics & Gynecology; PCP Nurse Practitioner Family; Visit Provider Obstetrics & Gynecology
DX: O62.3 Precipitate labor (principal); O26.23 Pregnancy care for patient with recurrent pregnancy loss, third trimester; O77.0 Labor and delivery complicated by meconium in amniotic fluid; O70.0 First degree perineal laceration during delivery; Z3A.37 37 weeks gestation of pregnancy; Z37.0 Single live birth; Z87.891 Personal history of nicotine dependence
CPT/HCPCS: 59025; 59050; 85025; 86850; 86900; 86901; 99218; J7120; A4216; G0378

== ENCOUNTER → 2020-03-16 13:24 | Outpatient (CLI) | payer MEDICAID, SELFPAY ==
[2020-02-03 05:13] VITALS: BMI 34.0
[2020-03-18 03:06] LABS: Chlamydia By Nucleic Acid AMP Negative (Negative)
[2020-03-18 04:44] LABS: Gonococcus By Nucleic Acid AMP Negative (Negative)
== END ==
PROVIDERS: PCP Nurse Practitioner Family; Visit Provider Obstetrics & Gynecology
DX: Z11.3 Encounter for screening for infections with a predominantly sexual mode of transmission (principal)
CPT/HCPCS: 87491; 87591

== ENCOUNTER → 2021-04-04 17:25 | Outpatient (CLI) | payer OTHER, MEDICAID, SELFPAY ==
[2021-04-04 18:21] LABS: Prolactin 8.6 ng/mL; T4 Free Direct 0.85 ng/dL (0.76-1.46); Thyroid Stim Hormone (TSH) 1.03 uIU/mL (0.358-3.74)
[2021-04-11 12:59] LABS: 17-Hydroxyprogesterone 20 ng/dL (.)
== END ==
PROVIDERS: PCP Nurse Practitioner Family; Visit Provider Obstetrics & Gynecology
DX: Z11.3 Encounter for screening for infections with a predominantly sexual mode of transmission (principal); E28.2 Polycystic ovarian syndrome; E28.1 Androgen excess; N92.5 Other specified irregular menstruation
CPT/HCPCS: 36415; 82627; 83498; 84146; 84439; 84443; 82626

== ENCOUNTER 2021-11-01 11:44 | Outpatient (CLI) | payer OTHER, MEDICAID, SELFPAY ==
[2021-11-09 16:01] LABS: HPV Reflexed? NOT INDICATED
== END 2021-11-01 23:59 | disposition home or self-care (01) ==
PROVIDERS: PCP Nurse Practitioner Family; Visit Provider Obstetrics & Gynecology
DX: Z12.4 Encounter for screening for malignant neoplasm of cervix (principal); N76.1 Subacute and chronic vaginitis
CPT/HCPCS: 88175; G0145